=== PATIENT | male | born 1970 | race Caucasian/White ===

== ENCOUNTER 2022-04-07 08:53 | Emergency (ER) | payer OTHER, SELFPAY ==
--- NOTE | ~2022-04-07 | XR_ITS ---
EXAMINATION: XR SHOULDER, RIGHT CLINICAL INFORMATION: Right shoulder pain status post fall one week ago. COMPARISON: None TECHNIQUE: Three views of the right shoulder. FINDINGS: Mild first acromioclavicular and glenohumeral degenerative joint changes are seen. There is no acute fracture or dislocation. The visualized right ribs are intact with the soft tissues are unremarkable. XR/XR shoulder RT min 2V IMPRESSION: Mild right shoulder degenerative joint changes. No acute fracture.
[2022-04-07 08:56] VITALS: BP 151/97; PULSE 83; RESP 8; TEMP 35.7; O2SAT 99; BMI 24.4
--- NOTE | 2022-04-07 09:16 | ED.FALL ---
HPI - Fall General Chief Complaint: Extremity Problem Stated Complaint: fall 03/31/22 Time Seen by Provider: 04/07/22 09:08 Source: patient Mode of arrival: ambulatory Limitations: no limitations History of Present Illness HPI Narrative: 51 yo male presents to the ER for evaluation of right shoulder pain after he fell one week ago. He states he fell backward when getting into his truck, falling back onto the arm trying to brace his fall. He reports increased pain this week in the back of his shoulder. He reports pain with abducting the shoulder. No chest pain, SOB, weakness, numbness or tingling. He has been taking motrin with no improvement. He has a difficult time doing his job due to the pain. MD complaint: fall Onset (ago): week(s) (1) Fall from: standing Fall witnessed: no Place fall occurred: street Loss of consciousness: none Length of LOC: second(s) Prolonged down time: no Location of injury - extremities: right: shoulder Severity: severe Severity scale (1-10): 8 Quality: aching Associated symptoms (after fall): denies Related Data Previous Rx's Medication Instructions Recorded hydrocodone 5 mg-acetaminophen 325 1 tab PO TID PRN severe pain 04/07/22 mg tablet (scale score 7-10) #6 tabs ibuprofen 600 mg tablet 600 mg PO Q8H PRN pain #20 tabs 04/07/22 Allergies Allergy/AdvReac Type Severity Reaction Status Date / Time No Known Allergies Allergy Unverified 11/15/19 19:02 [No Known Allergies*] Review of Systems Review of Systems: Yes all other systems are reviewed and are negative [facility] Social History Social History Advance Directives: No Advance Directives Information Provided: No Physical Exam Vital Signs: Vital Signs: Last Vital Signs Temp 96.3 F L 04/07/22 08:56 Pulse 83 04/07/22 08:56 Resp 8 L 04/07/22 08:56 BP 151/97 H 04/07/22 08:56 Pulse Ox 99 04/07/22 08:56 O2 Del Method 04/07/22 08:56 BMI result Body Mass Index 24.4 Appearance: Alert. Oriented X3. No acute distress. HEENT: normal inspection CVS: Normal heart rate and rhythm. Pulses normal. Respiratory: No respiratory distress. Skin: Skin warm and dry. Normal skin color. Normal skin turgor. No rashes. Extremities: normal inspection of the bilateral shoulders. right posterior shoulder tenderness lateral to the scapula. no AC joint tenderness. pain with abduction to about 150 degrees both laterally and anteriorly. positive Neer's sign. negative drop arm test. Neuro: Oriented X 3. No motor deficit. No sensory deficit. Course Course Course Narrative: 51 yo male presenting with right shoulder pain x1 week s/p fall. XR negative for acute fracture or dislocation. Exam consistent with possible rotator cuff injury. He would like a sling to rest his arm. Counseled of proper use of sling and time frame. Will give Orthopedics referral for further evaluation. Stable for d/c home with NSAID and pain control. Patient agrees with plan. Medical Decision Making Differential Diagnosis Differential Diagnoses: The differential diagnosis associated with the presentation includes Shoulder sprain, shoulder strain, rotator cuff injury, scapula injury, AC joint separation, clavicular fracture, proximal humerus fracture, muscle spasm Independent Interpretation I performed an independent interpretation of an: Plain X-Ray Interpretation: normal right shoulder, no fracture or dislocation appreciated Radiology Impression Discussion of test interpretation with radiology: I have reviewed the radiologist's reading. Radiologist Impression: XR/XR shoulder RT min 2V IMPRESSION: Mild right shoulder degenerative joint changes. No acute fracture Prescription Management I considered prescription management with: Pain Medication Critical Care Time Critical Care Time Critical Care Time: No Discharge Plan Discharge Clinical Impression: Injury of right rotator cuff Patient Disposition: Home, Self-Care Instructions: Rotator Cuff Injury (ED), Rotator Cuff Injury Exercises (DC) Additional Instructions: Your x-ray showed mild right shoulder degenerative joint changes, no acute fractures. Recommend following up with Orthopedics for further evaluation - call for an appointment for further evaluation Take the prescribed medication as directed Prescriptions: New ibuprofen 600 mg tablet 600 mg PO Q8H PRN (Reason: pain) Qty: 20 0RF hydrocodone-acetaminophen 5-325 mg tablet 1 tab PO TID PRN (Reason: severe pain (scale score 7-10)) Qty: 6 0RF Rx Instructions: Partial Fill upon patient request. Referrals: [facility] [place]Provider Group] (rotator cuff injury) Stand Alone Forms: Work/School Release Interventions: ED Discharge Assessment Last Done: 04/07/22 10:08 Discharge Date/Time: 04/07/22 10:08
--- OUTSIDE RECORDS SUMMARY | 2022-04-07 09:27 | XMS_ITS | Continuity of Care Document ---
:1970 Author Organization [facility] Address [address] [place] [address]- Care Team Providers Name Role Phone Not on Staff, PCP Primary Care Physician Unavailable Encounter [facility] Date(s): 03/05/19 - 10/07/19 [facility] [address] [address]- [facility] Discharge Disposition: A-D/C Home Attending Physician: Rashaad Moody MD Admitting Physician: Rashaad Moody MD Referring Physician: Not on Staff, Referring MD Allergies, Adverse Reactions, Alerts No Known Medication Allergies Immunizations Given and Recorded Vaccine Date Status Refusal Reason pneumococcal 23-valent vaccine 01/08/16 Given pneumococcal 13-valent vaccine 10/07/15 Given Not Given Vaccine Date Status Refusal Reason pneumococcal 23-valent vaccine 08/19/15 Not Given P atient Refuses Medications No Known Medications Problem List Condition Effective Dates Status Health Status Informant 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) Helicobacter positive 11/02/16 Active gastritis(Confirmed) Rectal cancer(Confirmed) Active Serrated polyp of colon(Confirmed) 11/02/16 Active Tobacco abuse(Confirmed) Active Tubular adenoma of colon ( 01/15) -> 11/02/16 Active repeat colonoscopy in 12/2020(Confirmed) Vital Signs Most recent to oldest [Reference Range]: 1 Height 178.6 cm (08/02/19 2:07 PM) Weight 83.8 kg (08/02/19 2:07 PM) Pulse Rate [55-90 bpm] 67 bpm (08/02/19 2:07 PM) Body Mass Index [18.5-24.99] 26.27 *H* (08/02/19 2:07 PM) Blood Pressure [90-138/55-84 mm Hg] 126/79 mm Hg (08/02/19 2:07 PM) Temperature [96.8-100.4 DegF] 97.8 DegF (08/02/19 2:07 PM) Blood pressure sites Arm, left (08/02/19 2:07 PM) Temperature Route Temporal (08/02/19 2:07 PM) Dry Weight 83.8 kg (08/02/19 2:07 PM) Weight Obtained Via Standing scale (08/02/19 2:07 PM) Dry Weight Obtained Via Standing scale (08/02/19 2:07 PM) Social History Social History Type Response Smoking Status Former smoker entered on: 05/05/16 Sex
--- OUTSIDE RECORDS SUMMARY | 2022-04-07 09:27 | XMS_ITS | Continuity of Care Document ---
:1970 Author Organization [facility] Address [address] [place] [address]- Care Team Providers Name Role Phone Not on Staff, PCP Primary Care Physician Unavailable Encounter [facility] Date(s): 07/23/20 - 08/22/20 [facility] [address] [address] Attending Physician: Andres Tripathi Admitting Physician: Andres Tripathi Referring Physician: Andres Tripathi Allergies, Adverse Reactions, Alerts No Known Medication Allergies Immunizations Given and Recorded Vaccine Date Status Refusal Reason pneumococcal 23-valent vaccine 01/08/16 Given pneumococcal 13-valent vaccine 10/07/15 Given Not Given Vaccine Date Status Refusal Reason pneumococcal 23-valent vaccine 08/19/15 Not Given P atient Refuses Problem List Condition Effective Dates Status Health Status Informant 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
--- OUTSIDE RECORDS SUMMARY | 2022-04-07 09:27 | XMS_ITS | Continuity of Care Document ---
:[address] [facility] Address [address] [place] [address]- Care Team Providers Name Role Phone Not on Staff, PCP Primary Care Physician Unavailable Encounter [facility] Date(s): 03/05/19 - 03/15/19 [facility] [address] [address] [facility] Attending Physician: Andres Tripathi Admitting Physician: Andres Tripathi Referring Physician: Andres Tripathi Allergies, Adverse Reactions, Alerts No Known Medication Allergies Immunizations Given and Recorded Vaccine Date Status Refusal Reason pneumococcal 23-valent vaccine 01/08/16 Given pneumococcal 13-valent vaccine 10/07/15 Given Not Given Vaccine Date Status Refusal Reason pneumococcal 23-valent vaccine 08/19/15 Not Given P atient Refuses Medications aquaphor and 2% viscous lidocaine topical 1:1 mixture aquaphor and 2% viscous lidocaine topical 1:1 mixture, See Instructions, # 400 Gm, Refills 2, Tot. Refills 2, Maintenance, apply to affected areas TID for topical relief, 04/05/16 16:16:09, Compound Start Date: 04/05/16 Status: Orderedgabapentin 100 mg oral capsule 100 mg, 1, capsule, By Mouth, 3 times a day, # 90 capsule, Refills 1, Tot. Refills 1, Maintenance, 10/11/17 22:39:04 EDT, Route to Pharmacy Electronically, [id number], [facility]/pharmacy #[id number] Start Date: 10/11/17 Status: OrderedMiraLax oral powder for reconstitution = 17 Gm, By Mouth, Daily, dissolve in water before taking, # 527 Gm, 0 Refills, Maintenance, 05/06/17 10:37:17, REC Powder, 17 Gm By Mouth Daily,Instr:dissolve in water before taking Start Date: 05/06/17 Status: Orderedomeprazole 40 mg oral enteric coated capsule 1 capsule = 40 mg, By Mouth, Daily, # 90 capsule, 2 Refills, Maintenance, 06/15/17 12:51:00 EDT, EC Capsule Start Date: 06/15/17 Stop Date: 03/12/18 Status: Orderedomeprazole 40 mg oral enteric coated capsule 1 capsule = 40 mg, By Mouth, Daily, # 90 capsule, 1 Refills, Maintenance, 05/06/17 10:34:29 Start Date: 05/06/17 Stop Date: 05/20/17 Status: Ordered Problem List Condition Effective Dates Status Health [...]
--- OUTSIDE RECORDS SUMMARY | 2022-04-07 09:27 | XMS_ITS | Continuity of Care Document ---
:1970 Author Organization [facility] Address [address] [place] [address]- Care Team Providers Name Role Phone Not on Staff, PCP Primary Care Physician Unavailable Encounter [facility] Date(s): 07/23/20 - 02/07/21 [facility] [address] [address] Discharge Disposition: A-D/C Home Attending Physician: Rashaad [...] oldest [Reference Range]: 1 Height 178.6 cm (12/08/20 2:39 PM) Weight 84.7 kg (12/08/20 2:39 PM) Pulse Rate [55-90 bpm] 67 bpm (12/08/20 2:39 PM) Body Mass Index [18.5-24.99] 26.55 *H* (12/08/20 2:39 PM) Blood Pressure [90-138/55-84 mm Hg] 110/78 mm Hg (12/08/20 2:39 PM) Temperature [96.8-100.4 DegF] 99.1 DegF (12/08/20 2:39 PM) Blood pressure sites Arm, right (12/08/20 2:39 PM) Temperature Route Temporal (12/08/20 2:39 PM) Dry Weight 84.7 kg (12/08/20 2:39 PM) Weight Obtained Via Standing scale (12/08/20 2:39 PM) Dry Weight Obtained Via Standing scale (12/08/20 2:39 PM) Social History Social History Type Response Smoking Status Former smoker entered on: 05/05/16 Sex
--- OUTSIDE RECORDS SUMMARY | 2022-04-07 09:27 | XMS_ITS | Continuity of Care Document ---
:1970 Author Organization [facility] Address [address] [place] [address]- Care Team Providers Name Role Phone Not on Staff, PCP Primary Care Physician Unavailable Encounter [facility] Date(s): 01/25/20 - 02/24/20 [facility] [address] [place] [address] Attending Physician: Andres Tripathi Admitting Physician: Andres [...]
--- OUTSIDE RECORDS SUMMARY | 2022-04-07 09:27 | XMS_ITS | Continuity of Care Document ---
:1970 Author Organization [facility] Address [address] [place] [address]- Care Team Providers Name Role Phone Not on Staff, PCP Primary Care Physician Unavailable En[facility] Date(s): 12/19/18 - 03/04/19 [facility] [address] [address] [facility] Discharge Disposition: A-D/C Home Attending [...] 10/11/17 22:39:04 EDT, Route to Pharmacy Electronically, [id number], [facility]/pharmacy #[id number] Start Date: 10/11/17 Status: OrderedMiraLax oral powder [...] oldest [Reference Range]: 1 Height 178.6 cm (01/02/19 2:08 PM) Weight 89.8 kg (01/02/19 2:08 PM) Pulse Rate [55-90 bpm] 52 bpm *L* (01/02/19 2:08 PM) Body Mass Index [18.5-24.99] 28.15 *H* (01/02/19 2:08 PM) Blood Pressure [90-138/55-84 mm Hg] 117/82 mm Hg (01/02/19 2:08 PM) Temperature [96.8-100.4 DegF] 98.3 DegF (01/02/19 2:08 PM) Blood pressure sites Arm, left (01/02/19 2:08 PM) Temperature Route Temporal (01/02/19 2:08 PM) Dry Weight 89.8 kg (01/02/19 2:08 PM) Weight Obtained Via Standing scale (01/02/19 2:08 PM) Dry Weight Obtained Via Standing scale (01/02/19 2:08 PM) Social History Social History Type Response Smoking Status Former smoker entered on: 05/05/16 Sex
--- OUTSIDE RECORDS SUMMARY | 2022-04-07 09:27 | XMS_ITS | Continuity of Care Document ---
:1970 Author Organization [facility] Address [address] [place] [address]- Care Team Providers Name Role Phone Not on Staff, PCP Primary Care Physician Unavailable [place] [facility] [place] 01/[place]20 - 04/01/20 [facility] [address] [address] Discharge Disposition: A-D/C Home Attending Physician: Rashaad [...]
--- OUTSIDE RECORDS SUMMARY | 2022-04-07 09:27 | XMS_ITS | Continuity of Care Document ---
:1970 Author Organization [facility] Address [address] [place] [address]- Care Team Providers Name Role Phone Not on Staff, PCP Primary Care Physician Unavailable Encounter [facility] Date(s): 08/10/19 - 08/10/[address] [address] [facility] Discharge Disposition: A-D/C Home Attending Physician: Rashaad Moody MD Admitting Physician: Rashaad Moody MD Referring Physician: Rashaad Modoy MD Allergies, Adverse Reactions, Alerts No Known [...] Most recent to oldest [Reference Range]: 1 2 Height 178.6 cm 178.6 cm (08/10/19 6:26 AM) (08/10/19 6:15 AM) Weight 85 kg (08/10/19 6:15 AM) Oxygen Saturation [94-100 %] 97 % (08/10/19 6:00 AM) Pulse Rate [55-90 bpm] 100 bpm *H* (08/10/19 6:00 AM) Blood Pressure [90-138/55-84 mm Hg] 145/91 mm Hg 133/ 100 mm Hg *H* (08/10/19 6:00 AM) (08/10/19 6:26 AM) Respiratory Rate [16-30 br/min] 18 br/min (08/10/19 6:00 AM) Temperature [96.8-100.4 DegF] 97.9 DegF (08/10/19 6:00 AM) Mode of Delivery (Oxygen) Room air (08/10/19 6:00 AM) Temperature Route Oral (08/10/19 6:00 AM) Dry Weight 85 kg (08/10/19 6:15 AM) Social History Social History Type Response Smoking Status Former smoker entered on: 05/05/16 Sex
== END 2022-04-07 10:08 | disposition home or self-care (01) ==
PROVIDERS: Emergency Provider Emergency Medicine
DX: S46.001A Unspecified injury of muscle(s) and tendon(s) of the rotator cuff of right shoulder, initial encounter (principal); V58.4XXA Person boarding or alighting a pick-up truck or van injured in noncollision transport accident, initial encounter; Y93.89 Activity, other specified; Y92.414 Local residential or business street as the place of occurrence of the external cause; Y99.9 Unspecified external cause status
CPT/HCPCS: 73030; 99282; 99283

== ENCOUNTER 2023-03-29 13:39 | Emergency (ER) | payer OTHER, SELFPAY ==
--- NOTE | 2023-03-29 | ECG_ITS ---
Test Reason : OD Blood Pressure : / mmHG Vent. Rate : 071 BPM Atrial Rate : 071 BPM P-R Int : 154 ms QRS Dur : 082 ms QT Int : 388 ms P-R-T Axes : 056 083 061 degrees QTc Int : 421 ms Normal sinus rhythm Normal ECG No previous ECGs available Referred By: Nancy Howell Electronically Signed By:ROB WAGNER MD
--- NOTE | 2023-03-29 13:53 | PC.NURSE ---
pt being changed over by security at this time. belongings placed in decon.
[2023-03-29 13:54] VITALS: BP 122/86; BP 146/88; PULSE 69; PULSE 73; RESP 16; TEMP 36.6; O2SAT 100; O2SAT 98; BMI 25.1
--- NOTE | 2023-03-29 14:13 | ED_ITS ---
HPI - Overdose General Chief Complaint: Overdose Stated Complaint: OVERDOSE Time Seen by Provider: 03/29/23 14:09 Source: patient Mode of arrival: ambulatory Limitations: no limitations History of Present Illness HPI Narrative: Patient comes to the emergency room by ambulance. Patient was found unresponsive on the living room by his mother. Patient called 911. Fire Department administered 2 doses of Narcan, patient was Ambu bag ventilated for 5 minutes, oxygen saturation improved to 100% on room air. Patient became alert and oriented x3, by the time he arrived in the emergency room, patient was asymptomatic. Patient states that he admits that he has been using heroin and alcohol. Patient states that he has been trying to refrain from using drugs and alcohol, tried to quit cold turkey but relapsed. Patient denies SI or HI. Related Data Home Medications Medication Instructions Recorded Confirmed No Known Home Meds 03/29/23 03/29/23 Allergies Allergy/AdvReac Type Severity Reaction Status Date / Time No Known Allergies Allergy Verified 03/29/23 13:51 [No Known Allergies*] Review of Systems 2 Review of Systems: Constitutional : No Weight loss, No Fever, No Chills, No Night Sweats, No Fatigue, No Malaise ENT/Mouth : No Hearing loss, No Ear Pain, No Nasal Congestion, No Sinus Pain, No Hoarseness, No sore throat, No Rhinorrhea, No Swallowing Difficulty Eyes: No Eye Pain, No Swelling, No Redness, No Foreign Body, No Discharge, No Vision Changes Cardiovascular : No Chest Pain, No SOB, No Dyspnea on Exertion, No Orthopnea, No Edema, No Palpitations Respiratory : No Cough, No Sputum, No Wheezing, No Smoke Exposure, No Dyspnea Gastrointestinal : No Nausea, No Vomiting, No Diarrhea, No Constipation, No abdominal Pain, No Hematochezia, No Melena Genitourinary : no irregular bleeding, No Dysuria, No Urinary Frequency, No Hematuria, No Urinary Incontinence, No Urgency, No Flank Pain, No Urinary Flow Changes, No Hesitancy Musculoskeletal : No joint pain, No Myalgias, No Joint Swelling Skin : No Skin Lesions, No rash Neuro : No Weakness, No Numbness, No Paresthesias, No Loss of Consciousness, No Dizziness, No Headache Psych : No Anxiety/Panic, No Depression, No SI/HI/AH/VH, patient admits to relapsed using drugs, heroin and alcohol Heme/Lymph: No Bruising, No Bleeding,No Lymphadenopathy Endocrine : No Polyuria, No Polydipsia, No Temperature Intolerance [facility] Past Medical History Medical History (Updated 03/29/23 @ 15:36 by Nancy Howell MD) Overdose Polysubstance abuse Social History Social History Alcohol intake: current Alcohol intake frequency: a few times a week Smoked in Last 30 Days: Yes Use of substances other than those prescribed or required for medical reasons: Yes Substance Use Type: Heroin Substance Use Frequency: Chronic Longstanding Last Used Substance: Just Prior to Admission Any prior treatment program specific to substance use: No Advance Directives: No Advance Directives Information Provided: No Physical Exam 2 Vital Signs: Vital Signs: Last Vital Signs Temp 97.9 F 03/29/23 13:54 Pulse 73 03/29/23 13:54 Resp 16 03/29/23 13:54 BP 122/86 03/29/23 13:54 Pulse Ox 98 03/29/23 13:54 O2 Del Method Room Air 03/29/23 13:54 BMI result Body Mass Index 25.1 Const: Other: Appearance: Alert. Oriented X3. No acute distress. Eyes: Pupils equal, round and reactive to light. ENT: Pharynx normal. Neck: Normal inspection. Neck supple. No lymph nodes noted. No crepitus CVS: Normal heart rate and rhythm. Pulses normal. Normal S1 and S2 Respiratory: No respiratory distress. Breath sounds normal. No Wheezing. No rales Abdomen: Soft and nontender. No rigidity. No distention. Skin: Skin warm and dry. Normal skin color. Normal skin turgor. Extremities: No lower extremity edema. No Lacerations. No Rash Neuro: Oriented X 3. No motor deficit. No sensory deficit. Moving all extremities. No slurred speech. CN 2 through 12 grossly intact Psych: calm, cooperative, normal affect Medical Decision Making Medical Decision Making MDM Narrative: -patient is awake alert and oriented x3, cooperative -patient's vitals stable -CARE/SUDe evaluation pending -patient will be discharged with home Narcan -patient asymptomatic I was informed by the patient's nurse that patient does not want to be evaluated by the care team, with a could be discharged. Patient's vitals and mental status are normal -before the patient was able to get discharge, patient was seen by the care team for a suit eval, then he changed his mind and all of a sudden his suicidal although he explicitly denied this a few minutes ago -all of patient's labs pending, patient is now on a Section 12 -17:18: Patient was evaluated by the care team. Patient states that he has not really suicidal, patient said that out of anger. Patient states that he has had of stressful situations, patient's a year ago from COVID. However, patient states that he would never hurt himself. Patient's mother was contacted by the care team, she has no safety concerns for him, patient ready for discharge. Patient denies suicidal or homicidal ideation Differential Diagnosis Differential Diagnoses: The differential diagnosis associated with the presentation includes (Anxiety, depression, accidental overdose) Admission/Observation Consideration of admission/observation: Escalation of care including admission/observation considered (Care team/patricia barth pending) Lab Data 03/29/23 16:04 03/29/23 16:04 Labs: Lab Results 03/29/23 03/29/23 03/29/23 Range/Units 14:39 16:04 16:13 WBC 10.4 (4.8-10.8) X10*3/uL RBC 4.71 (4.60-5.80) X10*6/uL Hgb 14.8 (14.0-18.0) g/dl Hct 45.9 (42.0-52.0) % MCV 97.5 (80.0-98.0) fL MCH 31.4 (27.0-33.0) pg MCHC 32.2 (31.0-36.0) g/dl RDW 13.0 (11.0-16.0) % Plt Count 231 (160-400) X10*3/uL MPV 9.7 (9.4-12.4) fL Immature Gran % (Auto) 0.3 (0.0-0.4) % Neut % (Auto) 67.4 (45-73) % Lymph % (Auto) 23.8 (20-40) % [place] % (Auto) 5.6 (2-11) % Eos % (Auto) 2.3 (0-4) % Baso % (Auto) 0.6 (0-2) % Lymph # (Auto) 2.5 (1.2-4.9) X10*3/uL [place] # (Auto) 0.6 (0.1-1.2) X10*3/uL Eos # (Auto) 0.2 (0.0-0.4) X10*3/uL Baso # (Auto) 0.1 (0.0-0.2) X10*3/uL Abs Immat Gran (auto) 0.03 (0.00-0.03) X10*3/uL Absolute Neuts (auto) 7.0 (2.0-8.3) x10*3/uL Absolute Nucleated RBC 0.000 (0.0-0.012) X10*3/uL Nucleated RBC % (auto) 0.0 (0.0-0.2) /100WBC Sodium 147 H (135-145) mmol/L Potassium 3.7 (3.3-5.1) mmol/L Chloride 112 H (96-108) mmol/L Carbon Dioxide 25 (22-29) mmol/L Anion Gap 14 (12-20) BUN 20 H (9-16) mg/dL Creatinine 1.49 H (0.5-1.4) mg/dL Estim Creat Clear Calc 59.8 Estimated GFR 50 Random Glucose 99 (60-115) mg/dL Calcium 9.2 (8.4-10.2) mg/dL Total Bilirubin 0.7 (0.0-1.0) mg/dL Direct Bilirubin 0.2 (0.0-0.5) mg/dL AST 20 (5-37) U/L ALT 27 (0-40) U/L Alkaline Phosphatase 105 (39-117) U/L Total Protein 7.6 (6.5-8.0) g/dL Albumin 4.3 (3.5-5.0) g/dL Urine Color Yellow Urine Appearance Clear Urine pH 6.0 (5.0-9.0) Ur Specific [place] 1.015 (1.005-1.025) Urine Protein Negative (Neg-Trace) mg/dL Urine Glucose (UA) Negative (Negative) mg/dL Urine Ketones Negative (Negative) mg/dL Urine Blood Negative (Negative) Urine Nitrite Negative (Negative) Ur Leukocyte Esterase Negative (Negative) Urine Opiates Screen POSITIVE H POSITIVE H (Not Detect) Urine Fentanyl Screen POSITIVE H POSITIVE H (Not Detect) Ur Barbiturates Screen Not Detected Not Detected (Not Detect) Ur Phencyclidine Scrn Not Detected Not Detected (Not Detect) Ur Amphetamines Screen Not Detected Not Detected (Not Detect) U Benzodiazepines Scrn Not Detected Not Detected (Not Detect) Urine Cocaine Screen Not Detected Not Detected (Not Detect) U Marijuana (THC) Screen POSITIVE H POSITIVE H (Not Detect) Ethyl Alcohol 130 mg/dL Discharge Plan Discharge Clinical Impression: Drug overdose, Suicidal ideation Patient Disposition: Home, Self-Care Instructions: Adult Overdose (ED) Additional Instructions: Please follow-up with your primary care physician tomorrow. If you have any worsening or new symptoms, please return to the emergency room or call 911 Prescriptions: No Action No Known Home Meds
--- NOTE | 2023-03-29 14:20 | PC.NURSE ---
ekg performed by tech. care team consult ordered at this time. pt resting comfortably in no apparent distress. respirations remain even and unlabored.
--- NOTE | 2023-03-29 14:46 | PC.NURSE ---
urine obtained/sent to lab by tech.
[2023-03-29 14:53] LABS: Amphetamine Screen Urine Not Detected (Not Detect); Barbiturates, Urine Not Detected (Not Detect); Benzodiazepines Screen Urine Not Detected (Not Detect); Cannabinoid Screen Urine POSITIVE (Not Detect); Cocaine Screen Urine Not Detected (Not Detect); Fentanyl, urine POSITIVE (Not Detect); Opiate Screen Urine POSITIVE (Not Detect); Phencyclidine Screen Urine Not Detected (Not Detect)
--- OUTSIDE RECORDS SUMMARY | 2023-03-29 15:23 | XMS_ITS | Patient Health Record ---
Author Name Unknown Organization Orlando Vitale III, MD Address [address] [place] [address] [place] [address] Care Team Providers Care Quarry Supervisor Name Role Phone Orlando Vitale Primary Care Provider [phone] ALLERGIES No Known Allergies REASON FOR REFERRAL Reason Consult and Treat Movement loss in the 3rd right joint on right hand Diagnosis 1 Hand weakness (R29.8 98) Diagnosis 2 Hand pain (M79.643) Referral Organization Orlando Vitale III, MD Referring Provider First Name Orlando Referring Provider Last Name Iam Referring Provider Speciality Internal edicine Referred Provider Theresa Castaneda Referred Provider Specialty Hand Surgery General Notes Narda Banerjee 12/08 10:09:22 AM >Faxed with progress mariel bain and referral Referral Priority Routine Referral Appointment Date 02/09/2023 Reason Consult and Treat Vitiligo Diagnosis 1 Vitiligo (L80) Referral Organization Orlando Vitale III, MD Referring Provider First Name Orlando Referring Provider Last Name Iam Referring Provider Speciality Internal edicine Referred Provider TARIQ MOYA Referred Provider Specialty Dermatology General Notes Narda Banerjee 12/08 10:08:32 AM > Faxed with Progress mariel bain and referralChriss Amber 12/29/2022 03:22:32 PM EDT > Office reached out to patient and left a message the patient has not returned the call back to schedule an appointment. Spoke with patient and gave the phone number to contact tariq moya to schedule an appointment with them.Chriss Amber 03/15/2023 02:49:36 PM EST > Office called and left message, patient has not returned call. Patient called and notified left number with patient., Narda Banerjee 03/24/2023 01:57:31 PM EST > Patient has not called back to schedule appointment with office. Referral Priority Routine Reason Consult and Treat History of Rectal Cancer Due for colonoscopy Diagnosis 1 Rectal cancer (C20) Referral Organization Orlando Vitale III, MD Referring Provider First Name Orlando Referring Provider Last Name Iam Referring Provider Speciality Internal M edicine Referred Provider Don Walls Referred Provider Specialty Gastroentero logy General Notes [place] 12/08 10:08:09 AM > Faxed with progress note, mariel and referral, Angela Bills CMA 12/09/2022 11:04:54 AM EDT > Dr Walls office called stated they need all prior records regarding his rectal cancer faxed to them . I explained to them that pt prior records have been requested from [facility] and when they come in we will forward them to the office, Narda Banerjee 01/03/2023 10:09:25 AM EST > Faxed over all records from the [facility] Referral Priority Routine Referral Appointment Date 04/04/2023 MEDICATIONS Medication SIG (Take, Route, Fr equency, Duration) Notes Start Date End Date Status Omeprazole 20 MG 1 capsule Orally Onc e a day for 30 day(s) 12/02/2022 Active traZODone HCl 100 MG 1 tablet at bedtime Orally Once a day for 30 day(s) 12/02/2022 Active SOCIAL HISTORY Tobacco Use: Social History Observation Description Date Details (start date - stop date) Current Smoker NA - NA Sex Assigned At : Social History Observation Description Sex Assigned At Male Tobacco Use/Smoking Question Answer Notes Patient is a current smoker How often do you smoke cigarettes? every day How many cigarettes a day do you smoke? 5 or les s How soon after you wake up d o you smoke your first cigarette? after 60 minutes Are you interested in quitting? Thinking about q uitting Additional Findings: Tobacco User Light cigarett e smoker ((1-9 cigs/day) Alcohol Screen Question Answer Notes Did you have a drink containing alcohol in the p ast year? No Points 0 Interpretation Negative PROBLEMS Problem Type ICD Code Onset Dates Problem Status W/U Status Risk SNOMED Code Notes Problem Rectal cancer (C20) Active confirmed Rectal cancer (702270783) The details of the illness are unavailable and will be requested. Appears to be in remission at this time. His colonoscopies will be done on schedule. The microsatellite instability testing will be requested. Problem Vitiligo (L80) Active confirmed Vitilig o (24450319) He has had this for several years. He will be referred to dermatology for evaluation. Problem Gastritis (K29.70) Active confirmed Gastritis (1597451) He will continue on his omeprazole at 20 mg daily. Problem Tobacco dependence (F17.200) Active confirmed 51639058 He was rehabilitation counsellor ed about smoking cessation and the medical problems associated with continued tobacco use. We made a plan to cut down by one cigarette per day. Problem Bipolar disorder in full remission, most recent episode unspecified type (F31.70) Active confirmed 73179752 He has been prescribed medication of past but did not get the prescriptions filled and has not taken medication. He does not want to take medication at this time. Mental illness, seems in remission at this time. Problem Insomnia, unspecified type (G47.00) Active confirmed 472454642 He was inst ructed on the use of diphenhydramine and melatonin. Problem History of obesity (Z86.39) Active confirmed 583279242 He wants. Weig ht 250 pounds by his history. His weight is now normal with a body mass index of 23. VITAL SIGNS Heart Rate 55 /min 12/02/2022 Temperature 98.4 degrees Fahrenheit 12/02/2022 Blood pressure diastolic 80 mm Hg 12/02/2022 Height 6 ' in 12/02/2022 Blood pressure systolic 144 mm Hg 12/02/2022 Weight 165 lbs 12/02/2022 BMI 22.38 kg/m2 12/02/2022 Encounters Encounter Location Date Provider Diagnosis Orlando Vitale III, MD [address] [place] [address] [place] [address] 12/02/2022 Orlando Vitale Rectal cancer C20 ; Vitiligo L80 ; Gastritis K29.70 ; Tobacco dependence F17.200 ; Bipolar disorder in full remission, most recent episode unspecified type F31.70 ; Insomnia, unspecified type G47.00 and History of obesity Z86.39 Orlando Vitale III, MD [address] [place] [address] [place] [address] 12/09/2022 Orlando Vitale III, MD [address] [place] [address] [place] [address] 12/28/2022 Orlando Vitale Vitiligo L80 ; Insomnia, unspecified type G47.00 ; Tobacco dependence F17.200 ; History of obesity Z86.39 and Gastritis K29.70 ASSESSMENTS Encounter Date Diagnosis Assessment Notes Treatment Notes Treatment Clinical Notes 12/02/2022 Vitiligo (ICD-10 - L80) He has had this for several years. He will be referred to dermatology for evaluation. 12/02/2022 Rectal cancer (ICD-10 - C20) The details of the illness are unavailable and will be requested. Appears to be in remission at this time. His colonoscopies will be done on schedule. The microsatellite instability testing will be requested. 12/28/2022 Vitiligo (ICD-10 - L80) He has had this for several years. He will be referred to dermatology for evaluation. 12/28/2022 Insomnia, unspecified type (ICD-10 - G47.00) He was instructed on the use of diphenhydramine and melatonin. 12/02/2022 Gastritis (ICD-10 - K29.70) He will continue on his omeprazole at 20 mg daily. 12/28/2022 Tobacco dependence (ICD-10 - F17.200) He was counseled about smoking cessation and the medical problems associated with continued tobacco use. We made a plan to cut down by one cigarette per day. 12/02/2022 Tobacco dependence (ICD-10 - F17.200) He was counseled about smoking cessation and the medical problems associated with continued tobacco use. We made a plan to cut down by one cigarette per day. 12/28/2022 History of obesity (ICD-10 - Z86.39) He wants. Weight 250 pounds by his history. His weight is now normal with a body mass index of 23. 12/02/2022 Bipolar disorder in full remission, most recent episode unspecified type (ICD-10 - F31.70) He has been prescribed medication of past but did not get the prescriptions filled and has not taken medication. He does not want to take medication at this time. Mental illness, seems in remission at this time. 12/28/2022 Gastritis (ICD-10 - K29.70) He will continue on his omeprazole at 20 mg daily. 12/02/2022 Insomnia, unspecified type (ICD-10 - G47.00) He was instructed on the use of diphenhydramine and melatonin. 12/02/2022 History of obesity (ICD-10 - Z86.39) He wants. Weight 250 pounds by his history. His weight is now normal with a body mass index of 23. PLAN OF TREATMENT Pending Test Test Name Order Date PROFILE, FASTING (COMPREHENSIVE METABOLI C) 12/02/2022 LIPID PANEL 12/02/2022 PSA, TOTAL 12/02/2022 CBC w DIFF 12/02/2022 Next Appt Details Provider Name:Orlando Vitale, 05/17/2023 10:00:00 AM, [address] [place] [address] [address], [place], [phone], Provider Name:Orlando Vitale, 12/09/2023 10:00:00 AM, [address] [place] [address] [address], [place], [phone], Insurance Providers Payer Name Payer Address Payer Phone Subscriber Number Group Number Insured Name Patient Relationship to Insured Coverage Start Date Coverage End Date [facility] [address] [facility] [place] [phone] [id number] Tien nuñez Joaquin Self - patient is the insured MEDICAL (GENERAL) HISTORY Medical History History ICD Code Carcinoma of the rectum in remission Tobacco dependence Vitiligo Gastritis Bipolar disorder Insomnia History of obesity Old injury to right hand with loss of ra nge of motion, right third finger Surgical History Surgery Date(Month/Year) Surgery right hand for injury Colonoscopy Stage 2 rectal cancer resected
--- NOTE | 2023-03-29 15:37 | MHC.CARE ---
Care team met with pt for SUDE, pt explains to t/w that he is diagnosed with bipolar, depressive type d/o and thinks about hanging himself everyday however alludes this is baseline due to the complex trauma he has developed throughout his life. Pt will a full crisis evaluation prior to d.c. Provider aware, labs will be ordered.
[2023-03-29 16:09] LABS: MANUAL DIFF FLAG NO
[2023-03-29 16:12] LABS: Basophils Absolute Auto 0.1 X10*3/uL (0.0-0.2); Basophils Percent Auto 0.6 % (0-2); Eosinophils Absolute Auto 0.2 X10*3/uL (0.0-0.4); Eosinophils Percent Auto 2.3 % (0-4); Hematocrit 45.9 % (42.0-52.0); Hemoglobin 14.8 g/dl (14.0-18.0); Imm Gran Abs Auto 0.03 X10*3/uL (0.00-0.03); Imm Gran Pct Auto 0.3 % (0.0-0.4); Lymphocytes Absolute Auto 2.5 X10*3/uL (1.2-4.9); Lymphocytes Percent Auto 23.8 % (20-40); Mean Corpuscular HGB Conc 32.2 g/dl (31.0-36.0); Mean Corpuscular Hemoglobin 31.4 pg (27.0-33.0); Mean Corpuscular Volume 97.5 fL (80.0-98.0); Mean Platelet Volume 9.7 fL (9.4-12.4); Monocytes Absolute Auto 0.6 X10*3/uL (0.1-1.2); Monocytes Percent Auto 5.6 % (2-11); Neutrophils Percent Auto 67.4 % (45-73); Platelet Count 231 X10*3/uL (160-400); Red Blood Count 4.71 X10*6/uL (4.60-5.80); White Blood Count 10.4 X10*3/uL (4.8-10.8)
[2023-03-29 16:22] LABS: Ethanol 130 mg/dL
[2023-03-29 16:25] LABS: Alanine Aminotransferase 27 U/L (0-40); Albumin Level 4.3 g/dL (3.5-5.0); Alkaline Phosphatase 105 U/L (39-117); Anion Gap 14 (12-20); Aspartate Amino Transferase 20 U/L (5-37); Bilirubin Direct 0.2 mg/dL (0.0-0.5); Bilirubin Total 0.7 mg/dL (0.0-1.0); Blood Urea Nitrogen 20 mg/dL (9-16); Calcium 9.2 mg/dL (8.4-10.2); Carbon Dioxide 25 mmol/L (22-29); Chloride 112 mmol/L (96-108); Creatinine Clr Calc Pharmacy 59.8; Estimated Glomerular Filt Rate 50; Glucose Random 99 mg/dL (60-115); Potassium 3.7 mmol/L (3.3-5.1); Sodium 147 mmol/L (135-145); Total Protein 7.6 g/dL (6.5-8.0)
[2023-03-29 16:30] LABS: Appearance Urine Clear; Color Urine Yellow; Glucose Urine UA Negative (Negative); Leukocyte Esterase Urine Negative (Negative); Nitrite Urine Negative (Negative); Specific Gravity - Urine 1.015 (1.005-1.025); Urine Blood Negative (Negative); Urine Ketones Negative (Negative); Urine Protein Negative (Neg-Trace)
[2023-03-29 16:44] LABS: Amphetamine Screen Urine Not Detected (Not Detect); Barbiturates, Urine Not Detected (Not Detect); Benzodiazepines Screen Urine Not Detected (Not Detect); Cannabinoid Screen Urine POSITIVE (Not Detect); Cocaine Screen Urine Not Detected (Not Detect); Fentanyl, urine POSITIVE (Not Detect); Opiate Screen Urine POSITIVE (Not Detect); Phencyclidine Screen Urine Not Detected (Not Detect)
--- NOTE | 2023-03-29 17:42 | PC.NURSE ---
Joaquin was transferred to the POD after he was going to be discharged from the main ED after an OD. He made SI statements to the CARE team which prompted an assessment. Joaquin verbalizing he is being held against my will and stating he just said what I feel every day . Joaquin denies any intention of SI and denies a plan. 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 After assessment Joaquin discharged home. Refused Narcan to take with him stating 'I don't need that and if I do I have some .
[2023-03-29 18:52] LABS: Bacteria Urine None Seen (None Seen); Hyaline Casts Urine 0-2 /LPF (0-2); RBC Urine 0-2 /HPF (0-2); Squamous Epithelial Cell Urine 0-2 /HPF (0-2); WBC Urine 0-5 /HPF (0-5)
== END 2023-03-29 17:45 | disposition home or self-care (01) ==
PROVIDERS: Emergency Provider Emergency Medicine
DX: T40.1X1A Poisoning by heroin, accidental (unintentional), initial encounter (principal); Y92.9 Unspecified place or not applicable; R45.851 Suicidal ideations; Z71.51 Drug abuse counseling and surveillance of drug abuser; Z79.899 Other long term (current) drug therapy; Z63.4 Disappearance and death of family member
CPT/HCPCS: 36415; 80048; 80076; 80307; 81001; 85025; 93005; 99285; S9485

== ENCOUNTER → 2023-03-29 14:17 | Outpatient (BNV) | payer OTHER, SELFPAY | PROVIDERS: Emergency Provider Emergency Medicine; Visit Provider Internal Medicine Cardiovascular Disease | DX: R45.851 Suicidal ideations (principal) | CPT/HCPCS: 93010 ==

== ENCOUNTER 2024-11-13 13:20 | Emergency (ER) | payer OTHER, SELFPAY ==
--- OUTSIDE RECORDS SUMMARY | 2014-04-23 06:00 | XMS_ITS | Continuity of Care Document ---
Author Organization [facility] Address [address] [address] Phone Care Team Providers Care Registrar Museum Name Role Phone Peter Montiel MD Unavailable Unavailable Allergies, Adverse Reactions, Alerts Substance Reaction Status Criticality No Known Allergies Active No Inform ation Procedures Procedure Date Visual Field Full Threshold Comprehensive BRANDON Exam New Patient Intermediate Refraction Advance Directives Directive Yes / No Effective Date File Name No Information Encounters Encounter Description Practice Location Reason(s) For Visit Diagnoses Date Provider Providers Copied on Encounter [facility] [address], [id number], tel:[phone] [place] pressure and pain (chief complaint) DESEsotropiaOrbita l fractureStrabismus Vision disturbance 2 5 Tiana Green. [address], [id number] , [place]. tel:[phone] Referring Provider: Peter Rogers, 70 [facility] [address], [place], [address] . tel:[phone] [facility] [address], [id number], tel:[phone] [place] TRAUMA/INJ URY (chief complaint) DESHyperopia b0 5 Tiana Green. 70 [facility] [address], [place], [id number] , [place]. tel:[phone] Referring Provider: Peter Rogers, 70 [facility] [address], [place], [address] . tel:[phone] Family History Family Member Type Diagnosis Age At Onset Problem (finding) Family history of malignant neoplasm of breast in first degree relative Payers Payer name Insurance type Covered libertarian ID Authoriza tion(s) No Information Social History Type Description Quantity Date Captured Comments Alcohol Use Details occasional w ine/beer occasionally Caffeine Use Details 2 cups per day Tobacco Use Status No Information Smoking Status Current some day smoker Sex Male Chief Complaint And Reason For Visit From encounter dated '04/23/2014 10:00'. pressure and pain (chief complaint). Description: The 43 Year old male presents for evaluation of pressure and pain in the right eye. The onset was gradual. The symptom is frequent. PT stated this condition has been since the accident back in 2012. Reason For Referral Reason For Referral No Information History Of Present Illness Encounter Date Complaint History Of Prese nt Illness pressure and pain The 43 Year ol d male presents for evaluation of pressure and pain in the right eye. The onset was gradual. The symptom is frequent. PT stated this condition has been since the accident back in 2012. TRAUMA/INJURY The 43 Year old male presents for evaluation of TRAUMA/INJURY in the right eye. It started about 2 year(s) ago 06/20/2012. The onset was sudden. Pt was hit near the right eye with a forklift and sustained a laceration of the right upper lid under the right eyebrow. Pt is complaining of pain and seeing hairs possible floaters. Pt states there are flashes at times. There is tearing at times. Pt was taken to [facility] ER on the day of the injury and had the laceration sutured and reportedly sustained an orbital fracture at the time that did not require surgical repair. Functional Status Date Functional Assessmen t No Information Instructions Date Instruction Additional Infor analilia - Refer to Neuro- Op hthalomogist for evalution of stabismus and to evaluate orbits. F/u with N-O for possible orbital films to r/o old orbital fx that was not diagnosed at the time of the 2013 trauma. Related to RAPHAEL - Return in 1 month with Peter Montiel MD for Complete Exam. Related to RAPHAEL - Advised to start u sing systane ultra artificial tears TID and prn OUPt wants to hold off on distance glasses for now Cont. using OTC readers for near visionF/U 3-4 weeks for a HVFPt to bring previous medical records from time of injury 2013 Related to RAPHAEL - Return in 3-4 week s with Peter Montiel MD for follow up with VF. Related to RAPHAEL Assessments Type Assessment Date assessment RAPHAEL assessment Esotropia assessment Orbital fracture assessment Strabismus assessment Vision disturbance Patient Care Teams Name Effective Dates (start - stop) Status Members No Information
--- OUTSIDE RECORDS SUMMARY | 2023-05-17 06:00 | XMS_ITS ---
Author Organization Orlando Vitale III, MD Address [address] [place] [address] [place] [address] Care Team Providers Care Uniform Room Attendant Name Role Phone Orlando Vitale Primary Care Provider REASON FOR VISIT Follow up Social History Sex Assigned At : Social History Observation Description Sex Assigned At Male Encounters Encounter Location Date Provider Diagnosis Orlando Vitale III, MD [address] [place] [address] [address] [place] [phone] 05/17/2023 Orlando Vitale Plan Of Treatment No Information Progress Notes * AIDANOrlandooDOB:1970 (54 yo M)Acc No.[id number]:05/17/2023 Progress Notes Patient: Joaquin POE Provider: Daniella Vitale MD :1970 A ge:52 Y S ex:Male Date:05/17/2023 Address:[address] [place] [address] [id number] Subjective: * Chief Complaints: * 1 . Follow up. * HPI: C OVID-19 Screening: Questions H ave you had any new onset fever, chills, cough, congestion, sore throat, shortness of breath, muscle aches? N o H ave you been exposed to the virus within the last 10 days? N o H ave you travelled internationally in the last 10 days? N o H ave you been exposed to COVID-19 in the past? N o * ROS: G eneral/Constitutional: pain o nly normal aches and pains. C hills d enies.?Fatigue a dmits. F ever d enies. E NT: Decreased hearing d enies. R espiratory: Cough d enies. C ardiovascular: Chest pain with exertion d enies. D yspnea on exertion?denies. S hortness of breath d enies. G astrointestinal: Constipation d enies. D ecreased appetite d enies.?Diarrhea d enies. H eartburn d enies. N ausea d enies. R ectal bleeding?denies. V omiting d enies. H ematology: bruising d enies. p etechiae d enies. S wollen glands n one have been noted. G enitourinary: Frequent urination d enies. M usculoskeletal: Muscle aches d enies. P ainful joints d enies. S ciatica d enies. W eakness d enies. S kin: Itching d enies. R omar d enies. S kin lesion(s)?denies. N eurologic: Difficulty speaking d enies. D izziness d enies.?Headache d enies. L ow back pain d enies. P sychiatric: Depressed mood d enies. * Medical History: Objective: * Vitals: * Examination: G eneral Examination: GENERAL APPEARANCE: p leasant, well nourished, well developed, in no acute distress, calm and relaxed. HEAD: a traumatic, normocephalic. EYES: e corbin, perrla, anicteric, conjugate. EARS: n ormal. NOSE: s eptum intact. ORAL CAVITY: n ormal, unremarkable. NECK/THYROID: n o jugular venous distention, no carotid bruit, thyroid normal. LYMPH NODES: n o enlarged lymph nodes,spleen normal. SKIN: n o suspicious lesions, anicteric. HEART: n o clicks, gallops, murmurs, or rubs, regular rhythm, S1, S2 normal, no s3, or vascular bruits. LUNGS: c lear to auscultation . BREASTS: no masses palpable bilaterally. ABDOMEN: b owel sounds normal, no ascites, no organomegaly, no mass. RECTAL EXAM: n ot examined. MUSCULOSKELETAL: e xtremities unremarkable, no clubbing, cyanosis or edema. PERIPHERAL PULSES: n ormal. NEUROLOGIC: a lert and oriented, cranial nerves 2-12 grossly intact, deep tendon reflexes 2+ symmetrical, motor strength normal upper and lower extremities, sensory exam intact. PSYCH: a lert, oriented. Assessment: Plan: * Treatment: * Images: * The named appointment provid er may or may not be the originator of this progress note, and it is not deemed complete until electronically signed by the appointment provider. Sign off status: Pending * Provider: Daniella Vitale MD Date: 0 05/17/2023 Generated for Printi ng/Fagaving/eTransmitting on: 0 11/13/2024 07:14 PM EDT History and Physical Notes * HPI (History of Present Illness) Category Sub-Category Detail Notes COVID-19 Screening Questions Have you had any new onset fever, chills, cough, congestion, sore throat, shortness of breath, muscle aches?: No Have you been exposed to the virus withi n the last 10 days?: No Have you travelled internationally in [facility] last 10 days?: No Have you been exposed to COVID-19 in the past?: No Examination Category Sub-Category Detail Notes General Examination GENERAL APPEARANCE: pleasant , well nourished, well developed, in no acute distress, calm and relaxed HEAD: atraumatic, normocep halic EYES: eomi, perrla, anicte sally, conjugate EARS: normal NOSE: septum intact NECK/THYROID: no jugular venous di stention, no carotid bruit, thyroid normal HEART: no clicks, gallops, murmurs, or rubs, regular rhythm, S1, S2 normal, no s3, or vascular bruits LUNGS: clear to auscultatio n ABDOMEN: bowel sounds normal, no ascites, no organomegaly, no mass NEUROLOGIC: alert and oriented, cranial nerves 2-12 grossly intact, deep tendon reflexes 2+ symmetrical, motor strength normal upper and lower extremities, sensory exam intact SKIN: no suspicious lesion s, anicteric PERIPHERAL PULSES: normal BREASTS: no masses palpable b ilaterally MUSCULOSKELETAL: extremities unremark able, no clubbing, cyanosis or edema LYMPH NODES: no enlarged lymph no beto,spleen normal RECTAL EXAM: not examined PSYCH: alert, oriented ORAL CAVITY: normal, unremarkable
--- OUTSIDE RECORDS SUMMARY | 2023-12-09 09:30 | XMS_ITS ---
Author Organization Orlando Vitale III, MD Address [address] [place] [address] [place] [id number] Care Team Providers Care Continuity Coordinator Name Role Phone Orlando Vitale Primary Care Provider Allergies Allergen (clinical drug ingredient) Drug/Non Drug [...] Date Provider Diagnosis Orlando Vitale III, MD [address] [place] [address] [place] [id number] 12/09/2023 Orlando Vitale Plan Of Treatment Medication Medication Name Sig Start Date Stop Date Notes traZODone HCl 100 MG 1 tablet at bedtime Orally Once a day 12/02/2022 Omeprazole 20 MG 1 capsule Orally Once a day 12/02/2022 Progress Notes * Sruthi BERMUDEZ:1970 (54 yo M)Acc No.[id number]:12/09/2023 Progress Notes Patient: Joaquin POE Provider: Daniella Vitale MD :1970 A ge:53 Y S ex:Male Date:12/09/2023 Address:[address] [place] [address] [phone] Subjective: * Chief Complaints: * 1 . [...] T obacco Use: T obacco Use/Smoking P atient is a c urrent smoker H ow [...] 2 grandchildren. 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 His , Funmi, in 2020 of wallace [...] Pending * Provider: Daniella Vitale MD Date: 1 Generated for Dana liu/Eliud/Lisethsmitting on: 0 11/13/2024 07:14 PM EDT History [...]
--- NOTE | ~2024-11-13 | CT_ITS ---
CLINICAL HISTORY: LUQ pain hx kidney stones rectal pain. L hydroneph CT abdomen and pelvis with contrast Comparison: None available Findings: No consolidation at the lung bases. Unremarkable gallbladder. 7 mm stone in the bladder at the posterior right aspect. No right hydronephrosis. Right nephrolithiasis measures up to 6 mm. Moderate left hydroureteronephrosis without a ureteral stone. Left nephrolithiasis measures 3 mm. Multifocal right renal scarring. No focal decreased enhancement of the kidneys. Calcifications versus stones in the region of the membranous urethra measuring up to 8 mm (series 8 images 48 through 51). The other solid organs are unremarkable. No bowel dilation. A normal appendix is identified. There are anastomotic sutures at the rectosigmoid junction. Rectal wall thickening versus underdistention. Presacral edema. No aneurysm. Severe calcified atherosclerotic disease. No lymphadenopathy. No ascites. No acute osseous abnormality. Impression: Moderate left hydroureteronephrosis without a ureteral stone. There is a 7 mm stone in the bladder, which may have been recently passed. Correlate with urinalysis to exclude infection. Wall thickening versus underdistention of the rectum with presacral edema. Proctitis could be considered. Stones versus calcifications in the region of the membranous urethra measuring up to 8 mm. This document has been electronically signed by: Miroslava Davila MD on 11/13/2024 20:30:01
[2024-11-13 13:31] VITALS: BP 131/83; PULSE 64; RESP 16; TEMP 36.9; O2SAT 96; BMI 19.9
--- NOTE | 2024-11-13 13:34 | ED_ITS ---
HPI - Male Genitourinary General Chief complaint: Urogenital-Male Stated complaint: UTI? Time Seen by Provider: 11/13/24 17:31 History of Present Illness ED Provider: Vitaliy Marley MD HPI Narrative: 54-year-old male with a history of rectal cancer about 8 years ago status post resection and anastomosis. History of remote kidney stones and left-sided stent in the past. He is mainly coming in for intermittent left upper quadrant/flank pain but primarily occasional dysuria weak stream inadequate voiding. Denies fever or chills. He does endorse ?gurgling ?generally in the abdomen/GI tract. Frequent somewhat soft stool. No GI bleeding. He also endorses using opioids nasally from the street for few years now. Related Data Previous Rx's ?Medication ?Instructions ?Recorded levofloxacin 500 mg tablet 500 mg PO DAILY 7 days #7 t abs 11/13/24 tamsulosin 0.4 mg capsule (Flomax) 0.4 mg PO BEDTIME # 7 caps 11/13/24 Allergies Allergy/AdvReac Type Severity Reaction Status Date / Time No Known Allergies (No Known Allergy Verified 11/13/24 13:32 Allergies*) [facility] Past Medical History Medical History (Updated 11/14/24 @ 00:01 by Background Daemon) Overdose Polysubstance abuse Social History Social History Alcohol intake: current Alcohol intake frequency: a few times a week Substance Use Type: Heroin and Opiates Physical Exam 2 Exam: Exam: EXAM: Gen: Alert, awake, well appearing, well hydrated. Slightly thin wasting appearing Head: Atraumatic Eyes: Anicteric, Normal conjunctiva. ENT: Moist mucosa, no pallor. ? Neck: Supple. Skin: ?No observable rash or bruising on exposed or examined skin Respiratory: Breathing comfortably, No distress.Clear to auscultation bilaterally, symmetric chest expansion, No wheeze, rales, ronchi. Cardiovascular: Regular rate and rhythm. No murmurs or rub. Well perfused periphery, warm extremities. No edema. ? Abdominal: Thin. No focal tenderness. Soft, no objective distension. No palpable masses or obvious organomegaly. ?No guarding, no rebound tenderness or other peritoneal findings. : Mild flank tenderness left side Neuro: Alert. Gross movement of all extremities intact. ? Psych: Calm. Cooperative. MSK: No grossly visible deformity. Vital signs: See flowsheet Vital Signs: Vital Signs: Last Vital Signs Temp 98.5 F 11/13/24 21:10 Pulse 51 11/13/24 21:10 Resp 18 11/13/24 21:10 BP 152/82 H 11/13/24 21:10 Pulse Ox 99 11/13/24 21:10 O2 Del Method Room Air 11/13/24 21:10 BMI result Body Mass Index 19.9 Course Course Course Narrative: This is an RME: Additional HPI, ROS, PE not included below will be deferred to primary provider. RME assessment and note performed by: Jordyn Anand PA-C This is a 54-year-old male who presents emergency department with concerns of urinary symptoms for the last 3 weeks. Reporting weak stream, dysuria, and painful urination. Also endorsing left upper abdominal pain for many years. Denies risk of STI. Plan: Labs, UA, further ER evaluation needed. Medications Administered Discontinued Medications Generic Name Dose Route Start Last Admin Trade Name Freq PRN Reason Stop Dose Admin Dicyclomine HCl 10 mg 11/13/24 18:06 11/13/24 18:32 Dicyclomine Hcl 10 Mg Capsule PO 11/13/24 18:07 10 mg ONCE ONE Administration Ibuprofen 600 mg 11/13/24 18:05 11/13/24 18:32 Ibuprofen 600 Mg Tablet PO 11/13/24 18:06 600 mg ONCE ONE Administration Iohexol 85 ml 11/13/24 19:16 11/13/24 19:16 Iohexol 350 Mg/Ml 100 Ml Infus..Btl IV 11/13/24 19:17 85 ml ONCE ONE Administration Ketorolac Tromethamine 30 mg 11/13/24 20:41 11/13/24 20:46 Ketorolac Tromethamine 30 Mg/Ml Vial IM 11/13/24 20:42 30 mg ONCE ONE Administration Levofloxacin 750 mg 11/13/24 20:54 11/13/24 20:58 Levofloxacin 750 Mg Tablet PO 11/13/24 20:55 750 mg ONCE ONE Administration Lidocaine HCl 10 ml 11/13/24 20:41 11/13/24 20:48 Lidocaine Hcl 2 % Urojet 10 Ml Jel.Pf.[employer] TOPICAL 11/13/24 20:42 10 ml ONCE ONE Administration Morphine Sulfate 15 mg 11/13/24 20:41 11/13/24 20:46 Morphine Sulfate Immed Release 15 Mg Tablet PO 11/13/24 20:42 15 mg ONCE ONE Administration Tamsulosin HCl 0.4 mg 11/13/24 18:05 11/13/24 18:32 Tamsulosin Hcl 0.4 Mg Capsule PO 11/13/24 18:06 0.4 mg ONCE ONE Administration Medical Decision Making Medical Decision Making MDM Narrative: Medical Decision Makin-year-old male with previous remote rectal cancer status post resection and anastomosis as well as kidney stone history with prior stent in the past now with inadequate stream and voiding. No fever or chills mild left flank tenderness does not appear ill or toxic but he has lost weight chronically. Left-sided hydronephrosis/hydroureter on bedside ultrasound. Given the patient's complicated cancer history weight loss chronic flank pain and acute urinary symptoms CT imaging is reasonable. Pain control Flomax for now. Later in the workup CT showed urethral stones maximally 8 mm and probably a past 7 mm bladder stone with residual left hydronephrosis. Urinalysis not suggestive of UTI and the patient is not septic. See business systems consultant discussion below patient was eventually discharged with his pain well controlled and stable vital signs. Strict return precautions were described and he understood. I also provided the patient with a referral for outpatient [facility] follow up for opioid use disorder which he is on motivated to do Preliminary Favored Differential Diagnosis: Kidney stone, cancerous obstruction, diarrheal illness, electrolyte derangement, cancer recurrence, UTI, BPH among additional considered etiologies Testing Interpreted Independently: ?See below for details Radiology or Lab testing Results Reviewed: CT report reviewed Impression: Moderate left hydroureteronephrosis without a ureteral stone. There is a 7 mm stone in the bladder, which may have been recently passed. Correlate with urinalysis to exclude infection. Wall thickening versus underdistention of the rectum with presacral edema. Proctitis could be considered. Stones versus calcifications in the region of the membranous urethra measuring up to 8 mm. Consults: ?Once the CT report returned as a 7 mm urinary tract stone with moderate left-sided hydroureter and hydronephrosis as well as multiple maximally 8 mm urethral stones I called Urology Dr. Emmanuel. My initial plan was to try a 20 Ecuadorean coude catheter to try to either bypass the stone or push the stone back into the bladder given that the patient has what appears to be at least 500 cc of urine in the bladder and hydronephrosis and is only passing small volumes of urine. I expressed this to her and she felt given that his pain is well- controlled he is not septic and has a stable creatinine we would initially try conservative management with Flomax, Levaquin and she would follow him outpatient. The patient will be instructed to return for severe pain inability to void fevers etc.. Independent Historians/External Chart Reviews: ?See below for details Social Determinants of Health Impacting MDM/Planning: ?See below for details Differential Diagnosis Differential Diagnoses: The differential diagnosis associated with the presentation includes Consult Healthcare Provider Management of the patient was discussed with: Life Management Teacher (Urologist see above) Lab Data MDM Lab Attestation statement: I reviewed the patient's lab results. 11/13/24 13:55 11/13/24 13:56 Labs: Lab Results 11/13/24 11/13/24 Range/Units 13:55 13:56 WBC 7.3 (4.8-10.8) X10*3/uL RBC 3.80 L (4.60-5.80) X10*6/uL Hgb 12.4 L (14.0-18.0) g/dl Hct 37.3 L (42.0-52.0) % MCV 98.2 H (80.0-98.0) fL MCH 32.6 (27.0-33.0) pg MCHC 33.2 (31.0-36.0) g/dl RDW 13.0 (11.0-16.0) % Plt Count 190 (160-400) X10*3/uL MPV 9.5 (9.4-12.4) fL Immature Gran % (Auto) 0.3 (0.0-0.4) % Neut % (Auto) 64.9 (45-73) % Lymph % (Auto) 23.5 (20-40) % Giles % (Auto) 8.3 (2-11) % Eos % (Auto) 2.3 (0-4) % Baso % (Auto) 0.7 (0-2) % Lymph # (Auto) 1.7 (1.2-4.9) X10*3/uL Giles # (Auto) 0.6 (0.1-1.2) X10*3/uL Eos # (Auto) 0.2 (0.0-0.4) X10*3/uL Baso # (Auto) 0.1 (0.0-0.2) X10*3/uL Abs Immat Gran (auto) 0.02 (0.00-0.03) X10*3/uL Absolute Neuts (auto) 4.7 (2.0-8.3) x10*3/uL Absolute Nucleated RBC 0.020 H (0.0-0.012) X10*3/uL Nucleated RBC % (auto) 0.3 H (0.0-0.2) /100WBC Sodium 139 (135-145) mmol/L Potassium 4.3 (3.3-5.1) mmol/L Chloride 108 (96-108) mmol/L Carbon Dioxide 25 (22-29) mmol/L Anion Gap 10 L (12-20) BUN 21 H (9-16) mg/dL Creatinine 1.34 (0.5-1.4) mg/dL Estim Creat Clear Calc 59.1 Estimated GFR 56 Random Glucose 97 (60-115) mg/dL Calcium 9.3 (8.4-10.2) mg/dL Total Bilirubin 1.3 H (0.0-1.0) mg/dL AST 32 (5-37) U/L ALT 27 (0-40) U/L Alkaline Phosphatase 79 (39-117) U/L Total Protein 7.0 (6.5-8.0) g/dL Albumin 4.4 (3.5-5.0) g/dL Lipase 11 (8-78) U/L Urine Color Yellow Urine Appearance Clear Urine pH 5.5 (5.0-9.0) Ur Specific [place]ley 1.020 (1.005-1.025) Urine Protein Negative (Neg-Trace) mg/dL Urine Glucose (UA) Negative (Negative) mg/dL Urine Ketones Negative (Negative) mg/dL Urine Blood Negative (Negative) Urine Nitrite Negative (Negative) Ur Leukocyte Esterase Small (1+) H (Negative) Urine RBC 0-2 (0-2) /HPF Urine WBC 0-5 (0-5) /HPF Ur Squamous Epith Cells 0-2 (0-2) /HPF Urine Bacteria None Seen (None Seen) Hyaline Casts 0-2 (0-2) /LPF Procedures Procedure Narrative Procedure Narrative: EMERGENCY ULTRASOUND INTERPRETATION-Limited Retroperitoneal (Renal) [This study was ordered, performed, and interpreted by myself. The study reveals: Impression: NO EVIDENCE OF UROLOGIC OBSTRUCTION] [Indication: FLANK PAIN Bladder: ANECHOIC URINE. Full Left Kidney: Mild to moderate left hydronephrosis/proximal hydroureter Performed by: Vitaliy Marley MD Images were stored CPT: 26273] Discharge Plan Discharge Clinical Impression: Hydronephrosis, Opioid use disorder, Acute retention of urine, Kidney stone Patient Disposition: Home, Self-Care Instructions: Hydronephrosis (ED), Opioid Use Disorder (ED) Additional Instructions: _ DISCHARGE DIAGNOSES: Kidney stone 1 of which has passed from the left ureter into the bladder and is 7 mm Additional stone in the urethra likely causing your decreased urine output HISTORY OF PRESENTATION: ?Decreased urine output and left flank pain EMERGENCY DEPARTMENT COURSE,TESTS, TREATMENTS: While in the ED today your pain was well-controlled and you were comfortable. You did not show signs of infection. You had normal kidney function. You were passing small volumes of urine. CT was performed which showed blockage in the left kidney and a passed kidney stone in the bladder. You also had several stones in the urethra inhibiting some of the flow. We discussed the case with our urology/kidney stone specialist who felt we would initially tried conservative therapy with medications to relaxant dilate your urinary tract tissue to help pass the stone naturally on its own and antibiotics. DISCHARGE MEDICATIONS: ?[We have made no changes to your regular medication regimen] we have added antibiotics and the medication as described above to relaxant urinary tract FOLLOW-UP: ?Call your primary or general physician soon as possible to discuss your symptoms, your ED visit and to discuss follow up plans Call the urlogy clinic tomorrow to discuss follow up Dr. Emmanuel is aware of your case and you can tell the staff that when you speak with them INSTRUCTIONS ?& RETURN PRECAUTIONS: If any symptoms change first call your primary physician, if it is after-hours your primary doctors office should have a provider air traffic control specialist center you can speak with. If the symptoms are severe or very concerning to you then call 911 or return to the ED. Return for high fevers, inability to urinate, severe pain, severe blood in the urine, Vitaliy Marley MD Emergency Physician [facility] Prescriptions: New tamsulosin [Flomax] 0.4 mg capsule 0.4 mg PO BEDTIME Qty: 7 0RF levofloxacin 500 mg tablet 500 mg PO DAILY 7 Days Qty: 7 0RF Referrals: [facility] [Provider Group, Addiction Medicine] Referral Note: NASAL OPIOID USE, MOTIVATED TO GET HELP Interventions: ED Discharge Assessment Last Done: 11/13/24 21:10 Discharge Date/Time: 11/13/24 21:11 Print Language: Georgian
[2024-11-13 14:02] LABS: MANUAL DIFF FLAG NO
[2024-11-13 14:04] LABS: Hematocrit 37.3 % (42.0-52.0); Hemoglobin 12.4 g/dl (14.0-18.0); Imm Gran Abs Auto 0.02 X10*3/uL (0.00-0.03); Imm Gran Pct Auto 0.3 % (0.0-0.4); Lymphocytes Absolute Auto 1.7 X10*3/uL (1.2-4.9); Mean Corpuscular HGB Conc 33.2 g/dl (31.0-36.0); Mean Corpuscular Hemoglobin 32.6 pg (27.0-33.0); Mean Corpuscular Volume 98.2 fL (80.0-98.0); NRBC Abs Auto 0.020 X10*3/uL (0.0-0.012); NRBC Pct Auto 0.3 /100WBC (0.0-0.2); Platelet Count 190 X10*3/uL (160-400); Red Blood Count 3.80 X10*6/uL (4.60-5.80); White Blood Count 7.3 X10*3/uL (4.8-10.8)
[2024-11-13 14:08] LABS: Appearance Urine Clear; Glucose Urine UA Negative (Negative); PH 5.5 (5.0-9.0); Specific Gravity - Urine 1.020 (1.005-1.025); UMIC TRIGGER UACC YES
[2024-11-13 14:18] LABS: Alanine Aminotransferase 27 U/L (0-40); Albumin Level 4.4 g/dL (3.5-5.0); Alkaline Phosphatase 79 U/L (39-117); Anion Gap 10 (12-20); Aspartate Amino Transferase 32 U/L (5-37); Blood Urea Nitrogen 21 mg/dL (9-16); Calcium 9.3 mg/dL (8.4-10.2); Carbon Dioxide 25 mmol/L (22-29); Chloride 108 mmol/L (96-108); Creatinine Clr Calc Pharmacy 59.1; Estimated Glomerular Filt Rate 56; Lipase 11 U/L (8-78); Potassium 4.3 mmol/L (3.3-5.1); Sodium 139 mmol/L (135-145); Total Protein 7.0 g/dL (6.5-8.0)
[2024-11-13 14:21] LABS: UACC Culture Trigger YES
[2024-11-13 17:27] VITALS: BP 173/93; PULSE 50; RESP 18; O2SAT 99
--- NOTE | 2024-11-13 17:32 | PC.NURSE ---
54 M presents to ED with dysuria and painful urination x 3 weeks, hx bowel cancer, denies any n/v/c/d at this time but sts painful BMs regularly. A+OX4, calm, cooperative. RR even and unlabored, denies SOB or CP at this time but sts gets CP and SOB at times when anxious.
--- OUTSIDE RECORDS SUMMARY | 2024-11-13 19:15 | XMS_ITS | Patient Health Record ---
Author Organization Orlando Vitale III, MD Address [address] [place] [address] Care Team Providers Care Health Information Managers Name Role Phone Orlando Vitale Primary Care Provider Allergies Allergen (clinical drug ingredient) Drug/Non Drug Allergy documented on EMR Reaction Allergy Type Onset Date Status No Known Drug Allergy Unknown Drug Allergy Active Reason For Referral No Information Medications Medication SIG (Take, Route, Fr equency, [...] User Light cigarett e smoker ((1-9 cigs/day) Problems Problem Type SNOMED Code ICD Code Onset Dates Problem Status W/U Status Risk Notes Problem Vitiligo (83360799) Vitiligo (L80) Active confirmed This process continues without change. Problem 12632780 Tobacco dependence (F17.200) Active confirmed He was counsele d about smoking cessation and the medical problems associated with continued tobacco use. We made a plan to cut down by one cigarette per day. Problem Gastritis (7900173) Gastritis (K29.70) Active confirmed He has no sympt oms of gastritis today. The abdominal examination was unremarkable. Problem Rectal cancer (942266372) Rectal cancer (C20) Active confirmed There is no sig n of recurrent gastrointestinal malignancy at this time. Surveillance will continue. Problem 050606793 Insomnia, unspecified type (G47.00) Active confirmed He was instruc shaheed on the use of diphenhydramine and melatonin. Problem 369515090 History of obesity (Z86.39) Active confirmed He is overweigh t now and this problem will be removed from his problem list. Problem 14045834 Bipolar disorder in full remission, most recent episode unspecified type (F31.70) Active confirmed He has been prescribed medication of past but did not get the prescriptions filled and has not taken medication. He does not want to take medication at this time. Mental illness, seems in remission at this time. Plan Of Treatment Pending Test Test Name Order Date PROFILE, FASTING (COMPREHENSIVE METABOLI C) 05/03/2023 PROFILE, FASTING (COMPREHENSIVE METABOLI C) 12/02/2022 LIPID PANEL 12/02/2022 PSA, TOTAL 05/03/2023 PSA, TOTAL 12/02/2022 CEA 05/03/2023 CBC w DIFF 05/03/2023 CBC w DIFF 12/02/2022 Lipid Panel 05/03/2023 Insurance Providers Payer Name Payer Address Payer Phone Subscriber Number Group Number Insured Name Patient Relationship to Insured Coverage Start Date Coverage End Date [address] [facility] [place] [id number] Joaquin Shahid Self - patient is the insured [place] [address] [place], [place] [id number] Joaquin Shahid Self - patient is the insured Medical (General) History Medical History History ICD Code Carcinoma of the rectum in remission Tobacco dependence Vitiligo Gastritis Bipolar disorder Insomnia History of obesity Old injury to right hand with loss of ra nge of motion, right third finger Surgical History Surgery Date(Month/Year) Surgery right hand for injury Colonoscopy Stage 2 rectal cancer resected
--- OUTSIDE RECORDS SUMMARY | 2024-11-13 19:15 | XMS_ITS | Clinical Summary ---
Author Organization [facility] ity Address [address] [place] [address] Care Team Providers Care Inspector Metal Fabricating Name Role Phone Unavailable Primary Care Provider Unavailabl e Social History Tobacco Use Types Packs/Day Years Used Date Smoking Tobacco: Never Assessed Sex and Gender Information Value Date Recorded Sex Assigned at Not on file Legal Sex Male 3:44 PM EDT Gender Identity Not on file Sexual Orientation Not on file Plan of Treatment Health Maintenance Due Date Last Done Comments DTaP,Tdap,and Td Vaccines (1 - Tdap) 1989 Hepatitis B Vaccines (1 of 3 - 19+ 3-dose series) 1989 Pneumococcal Vaccine: 50+ Ye ars (1 of 1 - PCV) 2020 Zoster Vaccines (1 of 2) 2020 Cholesterol Screening (Lipid Panel) 12/25/2023 Colorectal Cancer Screening: Colonoscopy 12/25/2023 HIV Screening 12/25/2023 Hepatitis C Screening 12/25/2023 Social Influencers of Health Screening 12/25/2023 Depression Screening 02/29/2024 COVID-19 Vaccine ( - 2023-2 5 season) 2024 Influenza Vaccine (#1) 2024 HIB Vaccines Aged Out No longer eligi ble based on patient's age to complete this topic HPV Vaccines Aged Out No longer eligi ble based on patient's age to complete this topic Hepatitis A Vaccines Aged Out No long er eligible based on patient's age to complete this topic IPV Vaccines Aged Out No longer eligi ble based on patient's age to complete this topic MMR Vaccines Aged Out No longer eligi ble based on patient's age to complete this topic Meningococcal ACWY Vaccine Aged Out N o longer eligible based on patient's age to complete this topic Meningococcal B Vaccine Aged Out No l onger eligible based on patient's age to complete this topic RSV Immunization Patients Un jay 20 months Aged Out No longer eligible b ased on patient's age to complete this topic Varicella Vaccines Aged Out No longer eligible based on patient's age to complete this topic
[2024-11-13] MEDS: iohexoL 350 MG/ML 100 ML INFUS..BTL 85 ML IV (19:16)
[2024-11-13 19:36] VITALS: BP 152/82; PULSE 51; RESP 18; TEMP 36.9; O2SAT 99
[2024-11-13] MEDS: Morphine Sulfate Immed Release 15 MG TABLET PO (20:46)
[2024-11-13] MEDS: Lidocaine HCl 2 % Urojet 10 ML JEL.PF.APP TOPICAL (20:48)
[2024-11-13 21:10] VITALS: BP 152/82; PULSE 51; RESP 18; TEMP 36.9; O2SAT 99
== END 2024-11-13 21:11 | disposition home or self-care (01) ==
PROVIDERS: Physician Assistant Medical; Emergency Provider Emergency Medicine
DX: N13.30 Unspecified hydronephrosis (principal); F11.90 Opioid use, unspecified, uncomplicated; R33.9 Retention of urine, unspecified; N20.0 Calculus of kidney
CPT/HCPCS: 36415; 74177; 76775; 80053; 81001; 81003; 83690; 85025; 87086; 96372; 99285; J1885; Q9967

== ENCOUNTER → 2024-11-13 18:05 | Outpatient (BNV) | payer OTHER, SELFPAY | PROVIDERS: Emergency Provider Emergency Medicine; Visit Provider Radiology Diagnostic Radiology | DX: N13.30 Unspecified hydronephrosis (principal); N21.0 Calculus in bladder | CPT/HCPCS: 74177 ==

== ENCOUNTER 2024-11-23 09:49 | Outpatient (AMB) | payer OTHER, SELFPAY ==
--- OUTSIDE RECORDS SUMMARY | 2023-12-09 09:30 | XMS_ITS ---
Author Organization Orlando Vitale III, MD Address [address] [place] [address] Care Team Providers Care Rough Rice Tender Name Role Phone Dr. Orlando Vitale III Primary Care Provider Allergies Allergen (clinical drug [...] Date Provider Diagnosis Orlando Vitale III, MD [address] [place] [address] [place] [phone] 12/09/2023 Orlando Vitale Plan Of Treatment Medication Medication Name Sig Start Date Stop Date Notes traZODone HCl 100 MG 1 tablet at bedtime Orally Once a day 12/02/2022 Omeprazole 20 MG 1 capsule Orally Once a day 12/02/2022 Progress Notes * rSuthi BERMUDEZ:1970 (54 yo M)Acc No.[id number]:12/09/2023 Progress Notes Patient: Joaquin POE Provider: Daniella Vitale MD :1970 A ge:53 Y S ex:Male Date:12/09/2023 Address:[address] [place] [address] [phone] Subjective: * Chief Complaints: [...] 2 grandchildren. 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 His , Funmi, in 2020 of wallace [...] Vitale MD Date: 1 Generated for Dana liu/Eliud/Christinaitting on: 0 11/23/2024 10:54 AM EDT History and Physical Notes * HPI [...]
--- NOTE | 2024-11-23 10:16 | A.OFFVIS_ITS ---
Intake Visit Reasons: urethral and kidney stone Intake Note: New patient presents today for initial visit for urethral and kidney stone Urology Medication:Tamsulosin Blood Thinner:None Antibiotic Allergies:None Allergies No Known Allergies (No Known Allergies*) Allergy (Verified 11/23/24 10:45) HPI Comments Details: 11/23/2024-Orlando was seen in the ER due to urinating. CT imaging noted left hydronephrosis no ureteral stones, 7 mm bladder stone and calcifications seen within the pendulous urethra, bilateral nonobstructing renal stones also noted. History of Present Illness The patient is a 54-year-old male presenting with difficulty urinating. He was seen in the emergency department on 11/16/24 due to this issue, where a CT scan revealed stones in the pendulous urethra and a 7 mm bladder stone. The imaging also showed left hydronephrosis without a ureteral stone, suggesting a possible passage of a stone, and bilateral nonobstructing renal stones. The patient reported no blood in the urine but experienced difficulty and pain during urination. He has a history of kidney stones and previously had a stent placed in [place]. There was no significant pain on the left side Results - CT scan: Stones in the pendulous urethra, 7 mm bladder stone, left hydronephrosis without ureteral stone, bilateral nonobstructing renal stones Plan Cystoscopy, remove urethral and bladder stones, left retrograde, possible ureteroscopy, if left hydronephrosis remains, may need a stent. [facility] Medical History Overdose Polysubstance abuse Social History Alcohol intake: current Alcohol intake frequency: a few times a week Substance Use Type: Heroin and Opiates Review of Systems Const All systems reviewed & are unremarkable except as noted in HPI and below Reports no additional complaints Eyes Reports no additional complaints ENT Reports no additional complaints Card Reports no additional complaints Resp Reports no additional complaints GI Reports no additional complaints Reports as per HPI Musc Reports no additional complaints Skin/Breast Reports system reviewed and no additional complaints, except as documented Neuro Reports no additional complaints Psych Reports no additional complaints Endo Reports no additional complaints Erich/Lymph Reports no additional complaints Aller/Immun Reports no additional complaints Physical Exam Const General: healthy appearing, no acute distress and well developed Orientation/consciousness: patient oriented x3 HEENT Head: Yes normocephalic and Yes atraumatic Eyes Conjunctivae: conjunctivae normal Neck Neck: Yes normal visual inspection Chest Chest palpation & inspection: normal inspection of the chest Resp Effort & Inspection: normal respiratory effort GI Inspection: Yes normal to inspection Neuro General: patient oriented x3 Psych Appearance: grossly normal Affect: normal affect Results Reviewed Results Reviewed: Date of Service: 11/13/24 Procedure(s): CT abdomen pelvis w IV con Accession Number(s): [id number] cc: Vitaliy Marley MD; Physician,None ~ Report Number: [id number]: Total DLP = 370.00 mGy-cm Reason for Exam: LUQ pain hx kidney stones/rectal pain. L hydroneph CLINICAL HISTORY: LUQ pain hx kidney stones rectal pain. L hydroneph CT abdomen and pelvis with contrast Comparison: None available Findings: No consolidation at the lung bases. Unremarkable gallbladder. 7 mm stone in the bladder at the posterior right aspect. No right hydronephrosis. Right nephrolithiasis measures up to 6 mm. Moderate left hydroureteronephrosis without a ureteral stone. Left nephrolithiasis measures 3 mm. Multifocal right renal scarring. No focal decreased enhancement of the kidneys. Calcifications versus stones in the region of the membranous urethra measuring up to 8 mm (series 8 images 48 through 51). The other solid organs are unremarkable. No bowel dilation. A normal appendix is identified. There are anastomotic sutures at the rectosigmoid junction. Rectal wall thickening versus underdistention. Presacral edema. No aneurysm. Severe calcified atherosclerotic disease. No lymphadenopathy. No ascites. No acute osseous abnormality. Impression: Moderate left hydroureteronephrosis without a ureteral stone. There is a 7 mm stone in the bladder, which may have been recently passed. Correlate with urinalysis to exclude infection. Wall thickening versus underdistention of the rectum with presacral edema. Proctitis could be considered. Stones versus calcifications in the region of the membranous urethra measuring up to 8 mm. Assessment & Plan Assessment & Plan (1) Bilateral kidney stones: Code(s): N20.0 - Calculus of kidney Category: Medical (2) Urethral stone: Code(s): N21.1 - Calculus in urethra Category: Medical (3) Hydronephrosis, left: Code(s): N13.30 - Unspecified hydronephrosis Category: Medical (4) Straining during urination: Code(s): R39.16 - Straining to void Category: Medical (5) Incomplete bladder emptying: Code(s): R33.9 - Retention of urine, unspecified Category: Medical Plan Plan Cystoscopy, remove urethral and bladder stones, left retrograde, possible ureteroscopy, if left hydronephrosis remains, may need a stent. Orders: Orders AMB Urinalysis Automated Today R33.8 - Other retention of urine Patient Instructions: The patient had an opportunity to ask questions regarding treatment plan. The patient expressed understanding and agreement with the above treatment plan. The patient is aware they should contact our office by phone for worsening of their current condition or the appearance of new symptoms. Compliance is encouraged with any medications and followup testing that is ordered. It is a privilege to be allowed the opportunity to participate in the urologic care of your patient. If you have any questions or concerns regarding treatment for the above conditions please do not hesitate to contact me. The office telephone contact is [phone]. This note is constructed in part using voice recognition software. While every effort has been made to ensure accuracy seam taper machine errors may have been included. Yours sincerely, Sherrell Restrepo MD Scribe Plan - Not visible on output: Patient was informed and verbally consented to the use of an ambient scribe for clinic note documentation during this visit. Coding Level of Care Code New Pt Level 4 (44192) Diagnoses Bilateral kidney stones N20.0 Urethral stone N21.1 Hydronephrosis, left N13.30 Straining during urination R39.16 Incomplete bladder emptying R33.9
--- OUTSIDE RECORDS SUMMARY | 2024-11-23 10:54 | XMS_ITS | Clinical Summary ---
Author Organization [facility] ity Address [address] [place] [address] Care Team Providers Care Restoration Ecologist Name Role Phone Unavailable Primary Care Provider [...]
--- OUTSIDE RECORDS SUMMARY | 2024-11-23 10:54 | XMS_ITS | Patient Health Record ---
Author Organization Orlando Vitale III, MD Address [address] [place] [address] Care Team Providers Care First Dyer Name Role Phone Dr. Orlando iVtale III Primary Care Provider Allergies Allergen (clinical [...] Status W/U Status Risk Notes Problem Vitiligo (13082514) Vitiligo (L80) Active confirmed This process continues without change. Problem 14743587 Tobacco dependence (F17.200) Active confirmed He was counsele d about smoking cessation and the medical problems associated with continued tobacco use. We made a plan to cut down by one cigarette per day. Problem Gastritis (0755761) Gastritis (K29.70) Active confirmed He has no sympt oms of gastritis today. The abdominal examination was unremarkable. Problem Rectal cancer (030278553) Rectal cancer (C20) Active confirmed There is no sig n of recurrent gastrointestinal malignancy at this time. Surveillance will continue. Problem 469471349 Insomnia, unspecified type (G47.00) Active confirmed He was instruc shaheed on the use of diphenhydramine and melatonin. Problem 678856189 History of obesity (Z86.39) Active confirmed He is overweigh t now and this problem will be removed from his problem list. Problem 98537464 Bipolar disorder in full remission, most recent [...] Date PROFILE, FASTING (COMPREHENSIVE METABOLI C) 12/02/2022 PROFILE, FASTING (COMPREHENSIVE METABOLI C) 05/03/2023 LIPID PANEL 12/02/2022 PSA, TOTAL 05/03/2023 PSA, TOTAL 12/02/2022 CEA 05/03/2023 CBC w DIFF 05/03/2023 CBC w DIFF 12/02/2022 Lipid Panel 05/03/2023 Insurance Providers Payer Name Payer Address Payer Phone Subscriber Number Group Number Insured Name Patient Relationship to Insured Coverage Start Date Coverage End Date [address] [facility] [place] [id number] Joaquin Shahid Self - patient is the insured [place] [address] [place] [id number] Joaquin Shahid Self - patient is the [...]
== END 2024-11-23 11:33 | disposition home or self-care (01) ==
LOC: HO.HUSH 09:50
PROVIDERS: Visit Provider Urology
DX: N20.0 Calculus of kidney (principal); N21.1 Calculus in urethra; N13.30 Unspecified hydronephrosis; R39.16 Straining to void; R33.9 Retention of urine, unspecified; R33.8 Other retention of urine
CPT/HCPCS: 99204

== ENCOUNTER → 2024-11-23 09:49 | Outpatient (BNVA) | payer OTHER, SELFPAY | PROVIDERS: Visit Provider Urology | DX: N20.0 Calculus of kidney (principal); N21.1 Calculus in urethra; N13.30 Unspecified hydronephrosis; R39.16 Straining to void; R33.9 Retention of urine, unspecified | CPT/HCPCS: 81003; 99202 ==

== ENCOUNTER → 2024-11-26 13:46 | Day surgery (SDC) | payer OTHER, SELFPAY ==
--- OUTSIDE RECORDS SUMMARY | 2023-12-09 09:30 | XMS_ITS ---
Author Organization Orlando Vitale III, MD Address [address] [place] [address] Care Team Providers Care Cattle Dipper Name Role Phone Dr. Orlando Vitale III [...] Date Provider Diagnosis Orlando Vitale III, MD [address] [place] [address] [place] [phone] 12/09/2023 Orlando Vitale Plan Of Treatment Medication Medication Name Sig Start Date Stop Date Notes traZODone HCl 100 MG 1 tablet at bedtime Orally Once a day 12/02/2022 Omeprazole 20 MG 1 capsule Orally Once a day 12/02/2022 Progress Notes * Sruthi BERMUDEZ:1970 (54 yo M)Acc No.[id number]:12/09/2023 Progress Notes Patient: Joaquin POE Provider: Daniella Vitale MD :1970 A ge:53 Y S ex:Male Date:12/09/2023 Address:[address] [place] [address] [phone] Subjective: * Chief Complaints: [...] 2 grandchildren. 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 His , Funmi, in 2020 of wallace [...] relaxed. HEAD: a traumatic, normocephalic. EYES: e crobin, perrla, anicteric, conjugate. EARS: n ormal. NOSE: [...] 1 Generated for Dana liu/Eliud/Christinaitting on: 0 11/26/2024 01:53 PM EDT History and Physical Notes * [...]
[2024-11-26 13:49] VITALS: BMI 19.7
--- OUTSIDE RECORDS SUMMARY | 2024-11-26 13:53 | XMS_ITS | Patient Health Record ---
Author Organization Orlando Vitale III, MD Address [address] [place] [address] [place] [address] Care Team Providers Care Track Service Worker Name Role Phone Dr. Orlando Vitale III [...] Status W/U Status Risk Notes Problem Vitiligo (07636747) Vitiligo (L80) Active confirmed This process continues without change. Problem 45372560 Tobacco dependence (F17.200) Active confirmed He was counsele d about smoking cessation and the medical problems associated with continued tobacco use. We made a plan to cut down by one cigarette per day. Problem Gastritis (2840046) Gastritis (K29.70) Active confirmed He has no sympt oms of gastritis today. The abdominal examination was unremarkable. Problem Rectal cancer (912127040) Rectal cancer (C20) Active confirmed There is no sig n of recurrent gastrointestinal malignancy at this time. Surveillance will continue. Problem 583685060 Insomnia, unspecified type (G47.00) Active confirmed He was instruc shaheed on the use of diphenhydramine and melatonin. Problem 317524793 History of obesity (Z86.39) Active confirmed He is overweigh t now and this problem will be removed from his problem list. Problem 62862355 Bipolar disorder in full remission, most recent [...] Insured Coverage Start Date Coverage End Date [address] [facility] [place] [id number] Joaquin Shahid Self - patient is the insured [place] [address] [place] [id number] Joaquin Shahid Self - patient is the [...]
--- OUTSIDE RECORDS SUMMARY | 2024-11-26 13:53 | XMS_ITS | Clinical Summary ---
Author Organization [facility] ity Address [address] [place] [address] Care Team Providers Care Automation Manager Name Role Phone Unavailable Primary Care Provider [...]
[2024-11-26 13:57] VITALS: BP 117/70; PULSE 50; RESP 16; TEMP 36.5; O2SAT 100
[2024-11-26] MEDS: Lactated Ringers 1,000 ML 100 ML IVCONT (14:04)
--- NOTE | 2024-11-26 16:11 | PC.NURSE ---
report given to jadiel jean aware of 2 spots to sign on preop record when complete along with 24 hour report.
--- NOTE | 2024-11-26 17:28 | MHC.SHP ---
Pre-Procedural Eval Section A - 24 Hr Update-Section A only Date of Service: 11/26/24 The patient is an INPATIENT: No Changes since office visit: No Cold of Flu in the past 2 weeks, No New Medical Problems, No Changes in Medication and No Patient answered all questions The patient has been examined within 24 hours of the surgical procedure. The History & Physical has been completed within 30 days and I have reviewed it.: Yes Section B - Complete if H&P > 30 days Chief Complaint: Hydronephrosis with ureteropelvic obstruction, Details of Present Illness: Cystoscopy, bladder stone laser Allergies: Allergies Allergy/AdvReac Type Severity Reaction Status Date / Time No Known Allergies (No Known Allergy Verified 11/23/24 10:45 Allergies*) Plan I have reviewed the history and physical and performed a pertinent physical examination on my patient. No changes have occurred unless specified. Time Spent With Patient Time: Total time managing care of this patient today ____ minutes.
--- NOTE | 2024-11-26 17:34 | P.CONAN_ITS ---
[facility] Active Problems Active Problems: All Active Problems Incomplete bladder emptying (Acute) Straining during urination (Acute) Hydronephrosis, left (Acute) Urethral stone (Acute) Bilateral kidney stones (Acute) Past Medical History Medical History Overdose Polysubstance abuse Family History Family history of problems with anesthesia: No Surgical History History of Problems with Anesthesia: No Social History Social History Alcohol intake: current Alcohol intake frequency: a few times a week Patient Tobacco Use Status: Current everyday Tobacco user Tobacco use type: Cigarette Use of substances other than those prescribed or required for medical reasons: Yes Substance Use Type: Heroin and Opiates Substance Use Frequency: Daily Advance Directives: No Advance Directives Information Provided: Yes Meds Allergies Allergy/AdvReac Type Severity Reaction Status Date / Time No Known Allergies (No Known Allergy Verified 11/23/24 10:45 Allergies*) Active Medications: Current Medications Lactated Ringer's (Lr) 1,000 mls @ 100 mls/hr IVCONT .Q10H MARYSOL Last Admin: 11/26/24 14:04 Dose: 100 mls/hr Exam Height,Weight and Vital Signs: Height 6 ft Weight 65.771 kg Last Vital Signs Temp 97.7 F 11/26/24 13:57 Pulse 50 11/26/24 13:57 Resp 16 11/26/24 13:57 BP 117/70 11/26/24 13:57 Pulse Ox 100 11/26/24 13:57 O2 Del Method Room Air 11/26/24 13:57 Airway Mallampati Class: II TM Dist: >3cm Neck ROM: Full Denture: Upper Partial: Lower Heart: rrr Lungs: cta Assessment and Plan Assessment Anesthesia Assessment: Anesthesia Plan Discussed and Chart Reviewed Final Anesthetic Review Family History of Problems with Anesthesia: No History of Problems with Anesthesia: No NPO: Yes ASA Class: II Final Preanesthetic Review: No Changes in Pt Med Stat, Meds/Allgs Chart Reviewed and Consent Obtained/Reviewed Patient Risk: Low Procedure Risk: Low Anesthetic Plan Anesthetic Plan: GA Disposition: Standard PACU
--- NOTE | 2024-11-26 19:23 | PC.NURSE ---
At 1915 Pt OOB saying that he is tired of waiting and would like to leave. IV removed. Pt was given midazolam 2mg IV by Dr Tom at 1745. Pt alert, oriented, and gait is steady. Pt refusing to sign AMA form. Pt provided with beverage and snack prior to leaving PACU. Tolerated po well.
== END ==
LOC: HO.SSS 13:46
PROVIDERS: Visit Provider Urology
DX: N13.0 Hydronephrosis with ureteropelvic junction obstruction (principal); Z53.29 Procedure and treatment not carried out because of patient's decision for other reasons; N21.0 Calculus in bladder
CPT/HCPCS: J1956; J2250

== ENCOUNTER 2024-12-17 10:41 | Day surgery (SDC) | payer OTHER, SELFPAY ==
--- OUTSIDE RECORDS SUMMARY | 2014-04-23 06:00 | XMS_ITS | Continuity of Care Document ---
Author Organization [facility] Address [address] [address] Phone Care Team Providers Care Sign Poster Name Role Phone Peter Montiel MD Unavailable [...] Copied on Encounter [facility] [address], [id number], tel:[phone] [place] pressure and pain (chief complaint) DESEsotropiaOrbita l fractureStrabismus Vision disturbance 2 5 Tiana Green. [address], [id number] , [place]. tel:[phone] Referring Provider: Peter Rogers, 70 [facility] [address], [address] . tel:[phone] [facility] [address], [id number], tel:[phone] [place] TRAUMA/INJ URY (chief complaint) DESHyperopia 0 5 Tiana Green. 70 [facility] [address], [place], [id number] , [place]. tel:[phone] Referring Provider: Peter Rogers, 70 [facility] [address], [place], [address] . tel:[phone] Family History Family Member Type Diagnosis Age [...] tearing at times. Pt was taken to [facility] ER on the day of the injury and had the laceration sutured and reportedly sustained an orbital fracture at the time that did not require surgical repair. Functional Status Date Functional Assessmen t No Information Instructions Date Instruction Additional Infor analilia - Return in 1 month with Peter Montiel MD for Complete Exam. Related to RAPHAEL - Refer to Neuro- Op hthalomogist for evalution of stabismus and to evaluate orbits. F/u with N-O for possible orbital films to r/o old orbital fx that was not diagnosed at the time of the 2013 trauma. Related to RAPHAEL - Advised to start u sing systane ultra artificial tears TID and prn OUPt wants to hold off on distance glasses for now Cont. using OTC readers for near visionF/U 3-4 weeks for a HVFPt to bring previous medical records from time of injury 2012 Related to RAPHAEL - Return in 3-4 week s with Peter Montiel MD for follow up with VF. Related to RAPHAEL Assessments Type Assessment Date assessment RAPHAEL assessment Esotropia assessment Orbital fracture assessment Strabismus assessment Vision disturbance Patient Care Teams Name Effective Dates (start - stop) Status Members No Information
--- OUTSIDE RECORDS SUMMARY | 2023-12-09 09:30 | XMS_ITS ---
Author Organization Orlando Vitale III, MD Address [address] [place] [address] Care Team Providers Care Commercial Escrow Officer Name Role Phone Dr. Orlando Vitale III Primary Care Provider [phone] Allergies Allergen (clinical drug ingredient) Drug/Non Drug Allergy documented on EMR Reaction Allergy Type Onset Date Status No Known Drug Allergy Unknown Drug Allergy Active REASON FOR VISIT Annual Exam Medications Medication SIG (Take, Route, Fr equency, Duration) Notes Start Date End Date Status traZODone HCl 100 MG 1 tablet at bedtime Orally Once a day 12/02/2022 Active Omeprazole 20 MG 1 capsule Orally Once a day 12/02 Active Social History Tobacco Use: Social History Observation Description Date [...] User Light cigarett e smoker ((1-9 cigs/day) Encounters Encounter Location Date Provider Diagnosis Orlando Vitale III, MD [address] [place] [address] [place] [id number] 12/09/2023 Orlando Vitale Plan Of Treatment Medication Medication Name Sig Start Date Stop Date Notes traZODone HCl 100 MG 1 tablet at bedtime Orally Once a day 12/02/2022 Omeprazole 20 MG 1 capsule Orally Once a day 12/02/2022 Progress Notes * Sruthi BERMUDEZ:1970 (54 yo M)Acc No.[id number]:12/09/2023 Progress Notes Patient: Joaquin POE Provider: Daniella iVtale MD :1970 A ge:53 Y S ex:Male Date:12/09/2023 Address:[address] [place] [address] [phone] Subjective: * Chief Complaints: * 1 . Annual Exam. * HPI: C OVID-19 Screening: Questions H [...] Depressed mood d enies. * Medical History: C arcinoma of the rectum in remission, Tobacco dependence, Vitiligo, Gastritis, Bipolar disorder, Insomnia, History of obesity, Old injury to right hand with loss of range of motion, right third finger. * Surgical History: S tagclaus 2 rectal cancer resected , Colonoscopy , Surgery right hand for injury . * Hospitalization/Major Diagno stic Procedure: D enies Past Hospitalization. * Family History: F ather: . M other: alive, Diabetes, diagnosed with DM. S iblings: , Oldest sister of breast cancer.. M aternal Grand Mother: , arthritis. 2 sister(s) . 1 son(s) , 1 daughter(s) - healthy. . He is not aware of any family history of cancer. His father suffered from alcoholism He is not aware of any other family history of substance use disorder or mental illness or addiction. His children are healthy and well. His 2 grandchildren are healthy and well. * Social History: T obacco Use: T obacco Use/Smoking P [place] is a c urrent smoker H ow often do you smoke cigarettes? e very day H ow many cigarettes a day do you smoke? 5 or less H ow soon after you wake up do you smoke your first cigarette? a fter 60 minutes A re you interested in quitting? T hinking about quitting A dditional Findings: Tobacco User L ight cigarette smoker ((1-9 cigs/day) H claus is with 1 son and 1 daughter and 2 grandchildren. 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 His , Funmi, in 2020 of wallace virus. His son is Joaquin the third and his daughter is Karen. Karen has 2 boys. They are healthy and well. * Medications: T aking Omeprazole 20 MG Capsule Delayed Release 1 capsule Orally Once a day , Taking traZODone HCl 100 MG Tablet 1 tablet at bedtime Orally Once a day , Medication List reviewed and reconciled with the patient * Allergies: N o Known Drug Allergy. Objective: * Vitals: * Examination: G eneral [...] Pending * Provider: Daniella Vitale MD Date: Generated for Dana liu/Eliud/Christinaitting on: 03:12 PM EDT History and Physical Notes * HPI (History of Present Illness) Category Sub-Category Detail Notes COVID-19 Screening Questions Have you had any new onset fever, chills, cough, congestion, sore throat, shortness of breath, muscle aches?: No Have you been exposed to the virus withi n the last 10 days?: No Have you travelled internationally in last 10 days?: No Have you been [...]
--- OUTSIDE RECORDS SUMMARY | 2024-11-29 15:12 | XMS_ITS | Patient Health Record ---
Author Organization Orlando Vitale III, MD Address [address] [place] [address] [place] [address] Care Team Providers Care Tea Leaf Reader Name Role Phone Dr. Orlando Vitale III [...] Status W/U Status Risk Notes Problem Vitiligo (99241095) Vitiligo (L80) Active confirmed This process continues without change. Problem 44752704 Tobacco dependence (F17.200) Active confirmed He was counsele d about smoking cessation and the medical problems associated with continued tobacco use. We made a plan to cut down by one cigarette per day. Problem Gastritis (7034942) Gastritis (K29.70) Active confirmed He has no sympt oms of gastritis today. The abdominal examination was unremarkable. Problem Rectal cancer (950863491) Rectal cancer (C20) Active confirmed There is no sig n of recurrent gastrointestinal malignancy at this time. Surveillance will continue. Problem 798739346 Insomnia, unspecified type (G47.00) Active confirmed He was instruc shaheed on the use of diphenhydramine and melatonin. Problem 704823694 History of obesity (Z86.39) Active confirmed He is overweigh t now and this problem will be removed from his problem list. Problem 46529954 Bipolar disorder in full remission, most recent [...] Insured Coverage Start Date Coverage End Date [address] [facility] [place] [id number] Joaquin Shahid Self - patient is the insured [place] [address] [place] [id number] Joaquin Shahid Self - patient is the [...]
--- OUTSIDE RECORDS SUMMARY | 2024-11-29 15:12 | XMS_ITS | Clinical Summary ---
Author Organization [facility] ity Address [address] [place] [address] Care Team Providers Care Cyber Systems Engineer Name Role Phone Unavailable Primary Care Provider [...]
[2024-12-13 11:49] VITALS: BMI 19.7
--- NOTE | 2024-12-14 09:51 | P.CONAN_ITS ---
HPI - Anesthesia Eval Consult details Narrative: 54 yr old male for left Cystoscopy, Ureteroroscopy, Retro, Laser; ?Cystoscopy Bladder Stone Removal H/O polysubstance use: admitted to use of street drugs at 10/2024 ED visit; had admission for drug use 02/2023 [facility] Active Problems Active Problems: All Active Problems Incomplete bladder emptying (Acute) Straining during urination (Acute) Hydronephrosis, left (Acute) Urethral stone (Acute) Bilateral kidney stones (Acute) Past Medical History Medical History (Updated 12/13/24 @ 11:45 by Maria Guadalupe Shah RN) Bladder stone Renal stone Polysubstance abuse Family History Family history of problems with anesthesia: No Surgical History Surgical History (Updated 12/13/24 @ 11:48 by Maria Guadalupe Shah RN) Surgical history unknown History of Problems with Anesthesia: No Social History Social History Alcohol intake: current Alcohol intake frequency: a few times a week Patient Tobacco Use Status: Current everyday Tobacco user Tobacco use type: Cigarette Substance Use Type: Heroin and Opiates Meds Allergies Allergy/AdvReac Type Severity Reaction Status Date / Time No Known Allergies (No Known Allergy Verified 11/23/24 10:45 Allergies*) Exam Height,Weight and Vital Signs: Height 6 ft Weight 65.771 kg Narrative Narrative: EKG 02/2023 Vent. Rate : 071 BPM Atrial Rate : 071 BPM P-R Int : 154 ms QRS Dur : 082 ms QT Int : 388 ms P-R-T Axes : 056 083 061 degrees QTc Int : 421 ms Normal sinus rhythm Normal ECG No previous ECGs available Assessment and Plan Final Anesthetic Review Family History of Problems with Anesthesia: No History of Problems with Anesthesia: No
--- NOTE | ~2024-12-17 | FL_ITS ---
EXAMINATION: FL GUIDANCE ONLY HISTORY: stone left COMPARISON: Correlation is made with a CT of the abdomen and pelvis with contrast dated 11/13/2024. TECHNIQUE: Fluoroscopy time: 12.4 seconds. Cumulative Dose: 2.0194 mGy. DAP: 0.8784 Gycm2 Images: 5. FINDINGS: Fluoroscopic spot films from a left ureterogram are submitted. The ureter is normal in caliber. There is mild to moderate hydronephrosis. No definite filling defects are identified. FL/FL guidance in OR IMPRESSION: Fluoroscopy during procedure. Please see procedure report for additional information. Electronically signed by: Orlando Lopes MD 12/18/2024 07:01 AM EDT
[2024-12-17 11:50] VITALS: BP 118/75; PULSE 46; RESP 16; TEMP 36.6; O2SAT 97
[2024-12-17] MEDS: Lactated Ringers 1,000 ML 100 ML IVCONT (12:03)
[2024-12-17 12:08] LABS: Cannabinoid Screen Urine POSITIVE (Not Detect)
--- NOTE | 2024-12-17 12:56 | PC.NURSE ---
Dr. Levi anesthesiologist and Dr. Virk aware of Utox results being positive for fentanyl and cocaine. Per Dr. Virk patient is emergent. Dr. Levi aware and okay to proceed.
--- NOTE | 2024-12-17 13:56 | P.CONAN_ITS ---
FORM[facility]LY [facility], LATER [facility] Active Problems Active Problems: All Active Problems (Updated 12/13/24 @ 11:45 by Maria Guadalupe Shah RN) Incomplete bladder emptying (Acute) Straining during urination (Acute) Hydronephrosis, left (Acute) Urethral stone (Acute) Bilateral kidney stones (Acute) Past Medical History Medical History Bladder stone Renal stone Polysubstance abuse Family History Family history of problems with anesthesia: No Surgical History Surgical History Surgical history unknown History of Problems with Anesthesia: No Social History Social History Are you a primary care analyst to a significant other at home: No Do you presently have visiting nurse or other home services: No Alcohol intake: current Alcohol intake frequency: does not drink Patient Tobacco Use Status: Current someday Tobacco user Tobacco use type: Cigarette Second Hand Smoke Exposure: No Use of substances other than those prescribed or required for medical reasons: No Substance Use Type: Heroin and Opiates Have you been hit, kicked, punched, or otherwise hurt by someone within the past year? If so, by whom?: No Are you DNR?: No Advance Directives: No Advance Directives Information Provided: Yes Advance Directives on File: No Poor oral hygiene: No Meds Allergies Allergy/AdvReac Type Severity Reaction Status Date / Time No Known Allergies (No Known Allergy Verified 11/23/24 10:45 Allergies*) Active Medications: Current Medications Lactated Ringer's (Lr) 1,000 mls @ 100 mls/hr IVCONT .Q10H MARYSOL Last Admin: 12/17/24 12:03 Dose: 100 mls/hr Levofloxacin (Levaquin) 500 mg in 100 mls @ 100 mls/hr IV PREOP ONE Stop: 12/17/24 14:12 Exam Height,Weight and Vital Signs: Height 6 ft Weight 65.771 kg Last Vital Signs Temp 97.9 F 12/17/24 11:50 Pulse 46 L 12/17/24 11:50 Resp 16 12/17/24 11:50 BP 118/75 12/17/24 11:50 Pulse Ox 97 12/17/24 11:50 O2 Del Method Room Air 12/17/24 11:50 Pertinent Lab Results Pertinent Lab Results: Laboratory Tests 12/17/24 11:48 Urine Opiates Screen POSITIVE H Ur Buprenorphine Scrn Not Detected Ur Oxycodone Screen Not Detected Urine Methadone Screen Not Detected Urine Fentanyl Screen POSITIVE H Ur Barbiturates Screen Not Detected Ur Phencyclidine Scrn Not Detected Ur Amphetamines Screen Not Detected U Benzodiazepines Scrn Not Detected Urine Cocaine Screen POSITIVE H U Marijuana (THC) Screen POSITIVE H Airway Mallampati Class: III (long neck) TM Dist: >3cm Neck ROM: Full Partial: Lower Loose/Missing/Broken Teeth: Yes, Upper and Lower Heart: franck, regular rhythm Lungs: CTA Assessment and Plan Assessment Anesthesia Assessment: Anesthesia Plan Discussed and Chart Reviewed Final Anesthetic Review Family History of Problems with Anesthesia: No History of Problems with Anesthesia: No NPO: Yes ASA Class: II Final Preanesthetic Review: Meds/Allgs Chart Reviewed, Consent Obtained/Reviewed and Anes Risks/Benef Reviewed Patient Risk: Low Procedure Risk: Low Anesthetic Plan Anesthetic Plan: GA (Pt states did not use fentanyl or cocaine, that marijuana must have been laced with it. Pt is bradycardic with normal bp,no signs of cocaine intoxication. Surgeon states procedure is urgent, will proceed.) Disposition: Standard PACU
--- NOTE | 2024-12-17 15:13 | MHC.SHP ---
Pre-Procedural Eval Section A - 24 Hr Update-Section A only Date of Service: 12/17/24 The patient is an INPATIENT: No Changes since office visit: No Cold of Flu in the past 2 weeks, No New Medical Problems, No Changes in Medication and No Patient answered all questions The patient has been examined within 24 hours of the surgical procedure. The History & Physical has been completed within 30 days and I have reviewed it.: No Section B - Complete if H&P > 30 days Chief Complaint: Hydronephrosis with ureteropelvic junction obstruc Details of Present Illness: Initial presentation and found to have stones within his urethra and possible ureteropelvic junction obstruction on the left side. Planning for cystoscopy, bladder stone removal, bilateral retrograde, left ureteroscopy with laser if necessary and stent. This is an urgent case. The patient test positive today for combination opioids, cocaine, marijuana. He is not actively impaired at this point in time and understands that his misuse of these compounds does place him at higher risk for complications. These are risks that he is willing to bear. Relevant Social History: Tobacco Use Present Medications: see Short Stay Collaborative assessment Medical History: Significant History History of Previous Operations: No relevant previous surgery Allergies: Allergies Allergy/AdvReac Type Severity Reaction Status Date / Time No Known Allergies (No Known Allergy Verified 11/23/24 10:45 Allergies*) Review of Systems Sugical H&P ROS: Negative: Constitution, Cardiovascular, Respiratory, Neurological, Psychiatric, Hem-Onc, Allergic/Immunologic, Gastrointestinal, Genitourinary, Musculoskeletal, Integumentary, Endocrine and Eyes/Ears/Nose/Throat Exam Surgical H&P Exam: Normal: HEENT, Normal: Heart, Normal: Lungs, Normal: Extremities, Normal: Abdomen, Normal: Skin and Normal: Neurological Plan Diagnosis/Plan: Unchanged I have reviewed the history and physical and performed a pertinent physical examination on my patient. No changes have occurred unless specified. Time Spent With Patient Time: Total time managing care of this patient today ____ minutes.
[2024-12-17 16:22] VITALS: BP 156/104; PULSE 44; RESP 18; TEMP 36.3; O2SAT 97
[2024-12-17 16:25] VITALS: BP 147/93; PULSE 51; RESP 18; O2SAT 97
[2024-12-17 16:30] VITALS: BP 144/88; PULSE 42; RESP 18; O2SAT 97
[2024-12-17 16:35] VITALS: BP 140/92; PULSE 48; RESP 18; O2SAT 97
--- NOTE | 2024-12-17 18:40 | P.OP_ITS ---
Operative Note Operative Note Date of Service: 12/17/24 Narrative: PreOperative Diagnosis: Bladder Stone, left hydro nephrosis Post Operative Diagnosis: Bladder Stone, left hydro nephrosis Procedure: 1) Cystoscopy 2) Bladder Stone Laser 3) left retrograde Surgeon: Dr Mushtaq Virk Anesthesia: LMA Indications for procedure: Presentation with hematuria through emergency room. CT scan at suggested left hydro nephrosis with obstructing distal left ureteric stone. On office found to have stones in urethra. Procedure: After informed consent was verified the patient was brought to the operating room and placed in a supine position. Anesthesia was administered per protocol. The patient was placed in modified dorsal lithotomy position and prepped and draped in a sterile fashion. Safety pause time-out was performed. Antibiotics being given. Cystoscopy was performed. Meatus dilated. Twenty-four [place] cystoscope placed. No abnormality noted of anterior-posterior urethra. Small prostate. Bladder entered. Three 1 cm stones seen within bladder. None of them could fit within the cystoscope to be removed. Using a 300 nm TFL thulium Olympus laser with bladder stones settings the stones were dusted into small pieces. These were able to be removed through the cystoscope. A 4 [place] open-ended ureteric catheter was placed. Retrograde performed on the left side. Ureter appeared patent. There was a degree of hydro nephrosis with some effacement of calices however this appeared chronic. The ureteric orifice was observed afterwards and good jetting of urine was seen. Plan to obtain Lasix renogram as outpatient. The patient tolerated the procedure well. They were extubated in operating room and transferred in stable conditions recovery area. Pathology: Bladder Stones
== END 2024-12-17 16:57 | disposition home or self-care (01) ==
PROVIDERS: Nurse Practitioner; Visit Provider Urology
PROC: (CPT 52005; principal; 2024-12-17 14:30)
PROC: 0TCB8ZZ Extirpation of Matter from Bladder, Via Natural or Artificial Opening Endoscopic (ICD-10-PCS; CPT 52352; 2024-12-17 14:30)
DX: N21.0 Calculus in bladder (principal); N13.2 Hydronephrosis with renal and ureteral calculous obstruction; R33.8 Other retention of urine; R30.9 Painful micturition, unspecified; Z87.442 Personal history of urinary calculi; F19.10 Other psychoactive substance abuse, uncomplicated; Z79.899 Other long term (current) drug therapy; F17.210 Nicotine dependence, cigarettes, uncomplicated
CPT/HCPCS: 52005; 52317; 80307; 88300; C1758; C1769; J0131; J1956; J2003; J2250; J2704; J3010; Q9967

== ENCOUNTER → 2024-12-17 10:41 | Outpatient (BNV) | payer OTHER, SELFPAY | PROVIDERS: Visit Provider Urology | DX: N13.2 Hydronephrosis with renal and ureteral calculous obstruction (principal) | CPT/HCPCS: 52317; 74420 ==